=== PATIENT | male | born 1955 | race Caucasian/White ===

== ENCOUNTER 2020-12-13 23:03 | Emergency (ER) | payer OTHER, SELFPAY ==
[2020-12-13 23:10] VITALS: BP 141/79; PULSE 65; RESP 20; TEMP 36.6; O2SAT 100
[2020-12-13 23:45] VITALS: RESP 20; O2SAT 100
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
[2020-12-14] MEDS: TETANUS,DIPHTHERIA,AC PERTUSSIS ADULT (0.5 ML) BOOSTRIX IM (00:08)
[2020-12-14] MEDS: AMOXICILLIN/CLAVULANATE K 875-125 MG TAB 1 TABLET PO (00:11)
== END 2020-12-14 00:15 | disposition home or self-care (01) ==
PROVIDERS: Emergency Provider Emergency Medicine; PCP Internal Medicine
DX: S61.252A Open bite of right middle finger without damage to nail, initial encounter (principal); Z23 Encounter for immunization; W50.3XXA Accidental bite by another person, initial encounter; Y93.F9 Activity, other caregiving
CPT/HCPCS: 90471; 90715; 99283; A9270

== ENCOUNTER 2021-05-23 14:30 | Emergency (ER) | payer OTHER, SELFPAY ==
--- NOTE | ~2021-05-23 | CT_ITS ---
EXAMINATION: CT abdomen pelvis wo con DATE: 05/23/2021 17:06 INDICATION: Nephrolithiasis presenting with left flank pain TECHNIQUE: Computed tomography (CT) of the abdomen and pelvis was performed without intravenous contr ast. Automated exposure control and iterative reconstruction technique were employed. The dose-length product was 982.71 mGy-cm. COMPARISON: 12/17/2018 FINDINGS: Minimal discoid atelectasis in the right lower lobe. Heart size is normal. No pericardial or pleural effusion. Mild bilateral gynecomastia. Liver, gallbladder, spleen, pancreas, right kidney and bilater al adrenal glands are normal. 4 mm obstructing stone at the proximal left ureter with mild left hydro nephrosis. 3 additional stones measuring 4 mm, 2 mm and 2 mm at the lower pole calyces of the left ki dney. Bladder is normal. Prostatomegaly measuring 5.3 x 4.1 cm. Minimal diverticulosis without adjace nt from 3 change to suggest diverticulitis. Small bowel and appendix are normal. No free intraperiton eal gas or fluid. No pathologically enlarged abdominal or pelvic lymphadenopathy. Chronic partially c alcified 12 mm subcutaneous mass near the L2 spinous process likely chronic sebaceous cyst. Chronic T 8 compression fracture with mild anterior wedging. Chronic sclerotic bone island at the left posterio r iliac spine. IMPRESSION: 1. Left-sided nephrolithiasis with obstructing 4 mm proximal left ureteral stone resulting in mild le ft hydronephrosis. 2. Prostatomegaly. Reviewed, dictated and finalized at [facility]. CUTTER IMPRESSION: 1. Left-sided nephrolithiasis with obstructing 4 mm proximal left ureteral ston e resulting in mild left hydronephrosis. 2. Prostatomegaly.
[2021-05-23 14:38] VITALS: BP 167/83; PULSE 81; RESP 18; TEMP 36.1; O2SAT 97
[2021-05-23 16:11] VITALS: BP 142/78; PULSE 68; RESP 18; O2SAT 99
--- NOTE | 2021-05-23 16:43 | ED.ABDPAIN ---
HPI - Abdominal Pain General Chief Complaint: Abdominal Pain Stated Complaint: kidney stone Time Seen by Provider: 05/23/21 16:38 Source: patient Mode of arrival: ambulatory Limitations: no limitations History of Present Illness HPI narrative: Patient is a 65-year-old male complaining of left leg pain, 7 out of 10, sharp, nonradiating, I think it is another kidney stone , started today. Patient states that he has history of kidney stones and this is how usually presents. Patient denies any chest pain, shortness of breath, nausea, vomiting, diarrhea, hematuria, fever or chills. Related Data Allergies Allergy/AdvReac Type Severity Reaction Status Date / Time carbamazepine [From Tegretol] Allergy Rash Verified 05/23/21 16:50 Review of Systems Review of Systems: All systems reviewed & are unremarkable except as noted in HPI and below Constitutional: Constitutional: Denies body ache(s), Denies chills, Denies excessive sweating, Denies fatigue, Denies fever(s), Denies headache(s), Denies lethargy, Denies malaise, Denies weakness and Denies weight loss Eyes: Eyes: Denies blurry vision, Denies change in vision and Denies loss of vision ENT: Denies dizziness, Denies ear discharge, Denies headache(s), Denies lip swelling, Denies epistaxis, Denies nasal congestion, Denies neck pain, Denies throat swelling and Denies tongue swelling Cardiovascular: Cardiovascular: Denies chest pain, Denies chest pain at rest, Denies chest pain with activity, Denies diaphoresis, Denies rapid heart rate, Denies edema, Denies irregular heart rhythm, Denies lightheadedness, Denies palpitations, Denies dyspnea and Denies dyspnea on exertion Respiratory: Respiratory: Denies chest congestion, Denies cough, Denies hemoptysis, Denies dyspnea and Denies dyspnea on exertion Gastrointestinal: Gastrointestinal: Denies abdominal pain, Denies melena, Denies hematochezia, Denies diarrhea, Denies nausea, Denies vomiting and Denies hematemesis Musculoskeletal: Musculoskeletal: Denies abnormal gait, Denies deformity, Denies joint swelling, Denies limited range of motion, Denies neck pain and Denies numbness Neurologic: Denies Abnormal speech present, Denies abnormal gait, Denies confusion, Denies dizziness, Denies headache(s), Denies focal weakness, Denies loss of vision, Denies numbness, Denies Other visual disturbances, Denies Sensory deficit (Neuro) and Denies weakness Psychiatric: Psychiatric: Denies confusion, Denies depression, Denies auditory hallucinations, Denies homicidal ideation and Denies suicidal ideation Endocrine: Endocrine: Denies cold intolerance, Denies excessive sweating, Denies fatigue, Denies heat intolerance and Denies palpitations Hematologic/Lymphatic: Hematologic/Lymphatic: Denies easy bleeding and Denies easy bruising Allergic/Immunologic: Allergic/Immunologic: Denies lip swelling, Denies throat swelling and Denies tongue swelling Course Vital Signs Vital signs: Vital Signs Temperature 36.1 C L 05/23/21 14:38 Pulse Rate 81 05/23/21 14:38 Respiratory Rate 18 05/23/21 14:38 Blood Pressure 167/83 H 05/23/21 14:38 Pulse Oximetry 97 05/23/21 14:38 Temperature 36.1 C L 05/23/21 14:38 Pulse Rate 68 05/23/21 16:11 Respiratory Rate 18 05/23/21 16:11 Blood Pressure 142/78 H 05/23/21 16:11 Pulse Oximetry 99 05/23/21 16:11 MDM - Abdominal Pain Differential Diagnosis Differential diagnosis: Likely abdominal pain, calculus of kidney, diverticulitis, pancreatitis and small bowel obstruction Lab Data Attestation: I reviewed the patient's lab results. Result diagrams: 05/23/21 17:01 05/23/21 17:01 Labs: Lab Results 05/23/21 05/23/21 05/23/21 Range/Units 17:01 17:01 18:18 WBC 10.4 H (4.5-10.0) K/mm3 RBC 4.18 L (4.6-6.20) M/mm3 Hgb 13.3 L (14.0-18.0) g/dL Hct 39.2 L (42.0-52.0) % MCV 93.8 (80-100) fl MCH 31.8 (26-34) pg MCHC 33.9 (32-36) g/dl RDW 12.4
[2021-05-23] MEDS: KETOROLAC 30 MG/ML VIAL (*BKC) IV PUSH (16:49)
[2021-05-23] MEDS: SODIUM CHLORIDE 0.9% IV 1,000 ML 999 ML IV CONT (16:49)
[2021-05-23 17:09] LABS: Basophils Absolute Auto 0.1 K/mm3 (0.0-0.1); Basophils Percent Auto 0.7 % (0.2-1.2); Eosinophils Absolute Auto 0.1 K/mm3 (0-0.3); Eosinophils Percent Auto 0.8 % (0-4.4); Hematocrit 39.2 % (42.0-52.0); Hemoglobin 13.3 g/dL (14.0-18.0); Immature Granulocyte Absolute 0.03 K/mm3 (0.00-0.031); Immature Granulocyte Percent A 0.3 % (0-0.5); Lymphocytes Absolute Auto 1.75 K/mm3 (0.9-3.2); Lymphocytes Percent Auto 16.9 % (18.3-44.2); Mean Corpuscular HGB Conc 33.9 g/dl (32-36); Mean Corpuscular Hemoglobin 31.8 pg (26-34); Mean Corpuscular Volume 93.8 fl (80-100); Mean Platelet Volume 10.1 fl (7.4-10.4); Monocytes Absolute Auto 0.9 K/mm3 (0.1-0.6); Neutrophils Absolute Auto 7.5 K/mm3 (1.3-6.7); Neutrophils Percent Auto 72.3 % (45.5-73.1); Platelet Count Result 226 k/mm3 (150-375); Red Blood Count 4.18 M/mm3 (4.6-6.20); Red Cell Distribution Width 12.4 % (11.5-14.5); White Blood Count 10.4 K/mm3 (4.5-10.0)
[2021-05-23 17:19] LABS: Alanine Aminotransferase 20 U/L (4-50); Albumin Level 4.2 g/dL (3.5-5.1); Alkaline Phosphatase 89 U/L (38-126); Anion Gap 6 mmol/L (8-16); Aspartate Amino Transferase 24 U/L (17-59); Bilirubin,Total 0.3 mg/dL (0.2-1.3); Blood Urea Nitrogen 19 mg/dL (9-20); Calcium 9.2 mg/dL (8.4-10.2); Carbon Dioxide 23 mmol/L (22-30); Chloride 108 mmol/L (98-107); Estimated CRCL calculation 77 ml/min; Estimated Glomerular Filt Rate > 60; Glucose 99 mg/dL (65-110); Sodium 137 mmol/L (137-145)
[2021-05-23 18:28] LABS: Add Urine Microscopic? YES; Appearance Urine Clear (Clear); Bacteria Urine Trace /hpf; Bilirubin Urine Negative (Negative); Blood Urine 3+ (Negative); Color Urine Yellow (Yellow); Glucose Urine UA Negative (Negative); Ketones Urine Negative (Negative); Leukocyte Esterase Ur Negative LEU/UL (Negative); Mucus Urine Rare /lpf; Nitrate Urine Negative (Negative); Protein Urine 1+ mg/dL (Negative); RBC Urine >75 /hpf (0-2); Urobilinogen Urine Negative mg/dL (<2.0); WBC Urine 0-3 /hpf
[2021-05-23] MEDS: TAMSULOSIN HCL 0.4 MG CAPSULE PO (19:12)
[2021-05-23 19:22] VITALS: BP 138/65; PULSE 80; RESP 18; O2SAT 99
== END 2021-05-23 19:23 | disposition home or self-care (01) ==
PROVIDERS: Emergency Provider Emergency Medicine; PCP Internal Medicine
DX: N13.2 Hydronephrosis with renal and ureteral calculous obstruction (principal); Z87.442 Personal history of urinary calculi
CPT/HCPCS: 36415; 74176; 80053; 81001; 85025; 96361; 96374; 99284; A9270; J1885; J7030

== ENCOUNTER 2021-05-26 10:07 | Outpatient (CLI) | payer OTHER, SELFPAY ==
--- NOTE | ~2021-05-26 | XR_ITS ---
EXAMINATION: XR abdomen/kub 1V DATE: 05/26/2021 10:34 INDICATION: Left ureteral stone. TECHNIQUE: A supine view of the abdomen on 2 radiographs was obtained. COMPARISON: Abdomen radiographs 01/16/2019, CT abdomen and pelvis 05/23/2021 FINDINGS: There are 5 mm and 2 mm stones in left kidney. There is a 4 mm stone in proximal left urete r at L4. There are no dilated loops of bowel. IMPRESSION: 1. 4 mm stone in proximal left ureter at L4. 2. Left kidney stones. Reviewed, dictated and finalized at location B. NTURE THERAPIST
== END 2021-05-26 10:08 | disposition home or self-care (01) ==
PROVIDERS: PCP Internal Medicine
DX: N20.2 Calculus of kidney with calculus of ureter (principal)
CPT/HCPCS: 74018

== ENCOUNTER 2021-05-27 01:09 | Day surgery (SDC) | payer OTHER, SELFPAY ==
[2021-05-26 13:50] VITALS: BMI 31.4
[2021-05-27] VITALS (10 sets, daily range): BP systolic 108–166; BP diastolic 51–74; PULSE 50–68; RESP 14–16; TEMP 36.3–36.6; O2SAT 98–100
--- NOTE | ~2021-05-27 | XR_ITS ---
EXAMINATION: XR abdomen/kub 1V DATE: 05/27/2021 09:08 INDICATION: Kidney stone. TECHNIQUE: A supine view of the abdomen on 2 radiographs was obtained. COMPARISON: CT abdomen and pelvis 05/23/2021 FINDINGS: There are 3 stones in left kidney lower pole measuring up to 5 mm. There is a 4 mm stone in proximal left ureter at L4. IMPRESSION: 1. Stones in left kidney and proximal left ureter. Reviewed, dictated and finalized at location B. ER ANALYST
--- NOTE | 2021-05-27 06:47 | WPDHPUPDATE1 ---
History and Physical Update Update Date/Time: 05/27/21 06:47 History and Physical has been reviewed, including an updated exam of the patient. There are NO changes in the patient's condition. Risks, benefits, and alternatives have been discussed and questions answered. Patient agrees to proceed with procedure.
--- NOTE | 2021-05-27 09:42 | P.PNAN_ITS ---
Anes - Initial Pre Proc Eval Procedure: Operation Date: 05/27/21 10:30 Proposed Procedures p Left Extracorporeal Shock Wave Lithotripsy - Isaías Mak MD Date/Time: 05/27/21 09:42 Surgeon: Isaías Mak MD Pre Op Diagnosis: Left Ureteral Stone Patient Data Age: 65 Gender: M Height: 1.8 m Weight: 100.2 kg Last Vital Signs Temp 36.3 C L 05/27/21 09:22 Pulse 65 05/27/21 09:22 Resp 16 05/27/21 09:22 BP 139/60 05/27/21 09:22 Pulse Ox 100 05/27/21 09:22 Allergies Allergy/AdvReac Type Severity Reaction Status Date / Time carbamazepine [From Tegretol] Allergy Mild Rash Verified 05/27/21 09:15 tamsulosin AdvReac Mild Dizziness Verified 05/27/21 09:15 Home Medications Medication Instructions Recorded Confirmed Type hydrocodone-acetaminophen 1 tablet PO Q6H PRN #12 tablet 05/23/21 05/27/21 Rx amitriptyline-chlordiazepoxide 1 tablet PO HS 05/26/21 05/27/21 History losartan 50 mg PO DAILY 05/26/21 05/27/21 History Patient hx anesthesia problems: none Family hx anesthesia problems: none Results Review: All pre-operative results and documents have been reviewed as part of the pre-operative evaluation. [facility] Past Medical History Medical History (Updated 05/27/21 @ 09:42 by Diego Travis MD) Depression HTN (hypertension) Obesity Surgical History Surgical History (Updated 05/27/21 @ 09:44 by Diego Travis MD) H/O lithotripsy Hx of cystoscopy Social History Social History Smoking packs per day: 0.5 Smoking cigarettes per day: 10.0 Years smoked: 17 Smoking pack-years: 8.50 Smoking status: Former smoker Tobacco type: cigarettes Smoking end date: 05/29/78 Living arrangements: with family Gender identity (if verbalized by the patient): Male Spiritual care concerns: No Anes - Eval Final PreProcedure Day of Procedure 05/27/21 09:42 Patient weight: obese Heart: regular rate and rhythm Lungs: clear to auscultation Airway: Mallampati scale class II Neurological: alert and oriented Last oral intake: >/= 8 hours ASA classification: III Emergent: no Anesthetic plan: proceed Anesthesia type and monitoring: general LMA and standard monitoring Results Review: All pre-operative results and documents have been reviewed as part of the pre-operative evaluation. Informed Consent: The patient's anesthetic plan and its attendant risks and benefits were discussed with the patient/family/POA. Questions were solicited and answers provided to the satisfaction of the patient/family/POA.
[2021-05-27] MEDS: fentaNYL CITRATE INJ (*CRX) 100 MCG/2 ML VIAL 50 MCG IV PUSH ×2 (09:56→10:13)
[2021-05-27] MEDS: LACTATED RINGERS 1,000 ML 30 ML IV CONT ×2 (10:04→13:00)
[2021-05-27] MEDS: ceFAZolin 2 GM/D5W 50 ML 2 GM/50 ML BAG IVPB (10:38)
--- NOTE | 2021-05-27 10:53 | W.PM.PROC2 ---
Procedure Note - Detailed Date of Procedure 05/27/21 Pre-op Diagnosis Left Ureteral Stone Post-op Diagnosis same Procedure Performed Left ESWL Surgeon Isaías Mak MD Anesthesia general Description of Procedure The patient was brought to the operative suite where he was placed in the supine position on the Dornier lithotripsy table. The focal point of the lithotripter was placed at a 4mm left mid-ureteral calculus. A total of 3000 shocks were delivered at a power setting of 5. There appeared to be good fragmentation of the stone. The patient tolerated the procedure well and was taken to the recovery room in good condition. Drains No Packing No Pathology none sent Complications No immediate complications Condition stable Disposition PACU
[2021-05-27] MEDS: oxyCODONE HCL (*CRX) 5 MG TAB IR PO (13:03)
--- NOTE | 2021-05-27 13:25 | SUR.PHASEII ---
1320- Call to Dr. Travis patient experiencing 10/10 flank pain and radiating into abdomen. Per Dr. Travis can place orders to give patient 0.5MG Dilaudid IVP PRN every 5 minutes up to a max of 3MG. 1325- Notified Dr. Mak patient experiencing 10/10 flank pain and radiating into abdomen. Obtained orders for 30MG IVP Toradol once.
[2021-05-27] MEDS: KETOROLAC 30 MG/ML VIAL (*BKC) IV PUSH (13:30)
[2021-05-27] MEDS: HYDROmorphone HCL INJ (*CRX) 1 MG/ML SYR 0.5 MG IV PUSH (13:44)
--- NOTE | 2021-05-27 14:20 | SUR.PHASEII ---
DR. HANCOCK AWARE PATIENT IS FEELING BETTER.
== END 2021-05-27 14:19 | disposition home or self-care (01) ==
PROVIDERS: PCP Internal Medicine; Visit Provider Urology
PROC: (CPT 50590; principal; 2021-05-27 10:30)
DX: N20.1 Calculus of ureter (principal); I10 Essential (primary) hypertension; F32.9 Major depressive disorder, single episode, unspecified; Z87.891 Personal history of nicotine dependence; E66.9 Obesity, unspecified; Z68.30 Body mass index [BMI] 30.0-30.9, adult
CPT/HCPCS: 50590; 74018; A9270; J0690; J1100; J1170; J1885; J2250; J2405; J2704; J3010; J7120

== ENCOUNTER 2021-06-11 11:54 | Outpatient (CLI) | payer OTHER, SELFPAY ==
--- NOTE | ~2021-06-11 | XR_ITS ---
EXAMINATION: XR abdomen/kub 1V EXAM DATE: 06/11/2021 12:24 INDICATION: Left ureteral stone. TECHNIQUE: Frontal projection of the upper abdomen, frontal projection lower abdomen/pelvis for inter pretation. Comparison is made to prior examination from 05/27/2021. FINDINGS: On prior study there was a 4 mm calcification projecting between the left 4th and 5th christopher sverse processes, which is not identified on these images. Approximately 4 mm left inferior calyceal stone again noted. There is mild symmetric bilateral hip primary osteoarthritis. Nonobstructive em l gas pattern. IMPRESSION: 1. Left nephrolithiasis. Reviewed, dictated and finalized at location A. ING CARHOP IMPRESSION: 1. Left nephrolithiasis.
== END 2021-06-11 11:55 | disposition home or self-care (01) ==
LOC: ANHIMG 11:58
PROVIDERS: PCP Internal Medicine; Visit Provider Urology
DX: N20.0 Calculus of kidney (principal)
CPT/HCPCS: 74018

== ENCOUNTER 2021-12-23 18:42 | Emergency (ER) | payer OTHER, SELFPAY ==
--- NOTE | ~2021-12-23 | CT_ITS ---
EXAMINATION: CT abdomen pelvis wo con DATE: 12/23/2021 20:36 INDICATION: Left flank pain. Pain and nausea. History of kidney stones. TECHNIQUE: Computed tomography (CT) of the abdomen and pelvis was performed without intravenous contr ast. The dose-length product was 395.37 mGy-cm. Automated exposure control and iterative reconstructi on technique were employed. COMPARISON: CT dated 05/23/2021 FINDINGS: Lung bases are unremarkable. Heart size normal. Mild atherosclerosis without aneurysm. Fatt y infiltration of the liver. The spleen, pancreas, adrenal glands and right kidney are unremarkable. Gallbladder is distended. There is a 5 mm left mid ureteral stone with moderate left hydroureteroneph rosis. There is a nonobstructing left renal stone. No free air or free fluid. Nonobstructive bowel ga s pattern. Normal appendix. No abnormal pelvic masses or fluid collections. There is sclerosis and tr abecular thickening in the left ilium with nearby bone island. The area of sclerosis may represent ea rly Paget's disease. Prostate gland is enlarged. IMPRESSION: 1. Left mid ureteral stone measuring 5 mm with moderate left hydroureteronephrosis. 2: Regional sclerosis intraventricular thickening in the left ilium, suspicious for Paget's disease. Reviewed, dictated and finalized at location A. IMPRESSION: 1. Left mid ureteral stone measuring 5 mm with moderate left hydroureteronephro sis. 2: Regional sclerosis intraventricular thickening in the left ilium, suspicious for Paget's disease.
[2021-12-23 19:18] VITALS: BP 176/81; PULSE 68; RESP 20; TEMP 36.6; O2SAT 99
--- NOTE | 2021-12-23 20:29 | ED.ABDPAIN ---
HPI - Abdominal Pain General Chief Complaint: Abdominal Pain Stated Complaint: left flank pain - history of kidney stones Time Seen by Provider: 12/23/21 19:39 History of Present Illness HPI narrative: 66-year-old male with a history of nephrolithiasis here for evaluation of left flank pain for the past 4 hours. Patient states the pain is intermittent in nature, is severe, and is present in his left flank and left groin. He reports nausea but no vomiting. No fevers or chills, chest pain, shortness of breath, constipation. He tells me that he has an extensive history with nephrolithiasis, he had a lithotripsy in April of last year with Dr. Mak. States today feels very similar. Related Data Home Medications Medication Instructions Recorded Confirmed amitriptyline-chlordiazepoxide 25 1 tablet PO HS 05/26/21 05/27/21 mg-10 mg tablet losartan 50 mg tablet 50 mg PO DAILY 05/26/21 05/27/21 Allergies Allergy/AdvReac Type Severity Reaction Status Date / Time carbamazepine [From Tegretol] Allergy Mild Rash Verified 12/23/21 18:43 tamsulosin AdvReac Mild Dizziness Verified 12/23/21 18:43 Review of Systems Review of Systems: Gen: Denies fevers or chills Eyes: Denies eye pain or visual change ENT: Denies congestion Respiratory: Denies shortness of breath or cough CV: Denies chest pain or palpitations GI: Reports nausea. Denies abdominal pain, emesis or diarrhea : denies burning, urgency, frequency or hematuria Musculoskeletal: Reports left back pain. Denies back pain or muscle pain Neuro: Denies numbness, tingling, weakness or focal weakness Skin: Denies rash Except as documented, all other systems reviewed and negative [facility] Past Medical History Medical History Depression HTN (hypertension) Obesity Surgical History Surgical History H/O lithotripsy Hx of cystoscopy Social History Social History Smoking packs per day: 0.5 Smoking cigarettes per day: 10.0 Years smoked: 17 Smoking pack-years: 8.50 Smoking status: Former smoker Tobacco type: cigarettes Smoking end date: 05/29/78 Gender identity (if verbalized by the patient): Male Spiritual care concerns: No Exam Narrative: APPEARANCE: Well appearing, no pain in distress, well-nourished. Head: Normocephalic and atraumatic. EYES: PERRLA/EOMI, conjunctivae clear NOSE: No nasal drainage EARS: External ear normal in appearance THROAT: Oropharynx is clear. Mucous membranes are moist. NECK: Supple. No adenopathy, no masses. RESPIRATORY: Airway patent, respirations nonlabored. Clear to auscultation bilaterally, no rales, rhonchi, wheezing. CARDIOVASCULAR: Regular rate and rhythm without murmurs, rubs, or gallops. ABDOMINAL: No CVA tenderness. Normoactive bowel sounds. Soft, nontender, nondistended. No rebound tenderness or guarding. MUSCULOSKELETAL: Extremities are warm and well-perfused. Moves all extremities well. No edema. NEURO: Normal speech. No focal neurologic deficits. SKIN: Skin is warm and dry. No rashes. PSYCHIATRIC: Normal affect/mood. Course Consultations Consultation #1: Spoke with Dr. Gannon, urology, agrees with plan for outpatient follow up Date: 12/23/21 Time: 21:50 Vital Signs Vital signs: Vital Signs Temperature 97.8 F 12/23/21 19:18 Pulse Rate 68 12/23/21 19:18 Respiratory Rate 20 12/23/21 19:18 Blood Pressure 176/81 H 12/23/21 19:18 Pulse Oximetry 99 12/23/21 19:18 Oxygen Delivery Room Air 12/23/21 19:18 Temperature 97.8 F 12/23/21 19:18 Pulse Rate 59 L 12/23/21 22:00 Respiratory Rate 18 12/23/21 22:00 Blood Pressure 174/79 H 12/23/21 22:00 Pulse Oximetry 99 12/23/21 22:00 Oxygen Delivery Room Air 12/23/21 19:18 MDM - Abdominal Pain MDM Narrative Medical decision making narrative: 6
[2021-12-23 20:33] LABS: Basophils Absolute Auto 0.1 K/mm3 (0.0-0.1); Basophils Percent Auto 0.6 % (0.2-1.2); Eosinophils Absolute Auto 0.2 K/mm3 (0-0.3); Eosinophils Percent Auto 1.6 % (0-4.4); Hemoglobin 14.3 g/dL (14.0-18.0); Immature Granulocyte Absolute 0.02 K/mm3 (0.00-0.031); Immature Granulocyte Percent A 0.2 % (0-0.5); Lymphocytes Absolute Auto 2.95 K/mm3 (0.9-3.2); Lymphocytes Percent Auto 25.4 % (18.3-44.2); Mean Corpuscular HGB Conc 33.3 g/dl (32-36); Mean Corpuscular Hemoglobin 31.2 pg (26-34); Mean Corpuscular Volume 93.9 fl (80-100); Monocytes Absolute Auto 1.1 K/mm3 (0.1-0.6); Monocytes Percent Auto 9.7 % (2.6-8.5); Neutrophils Absolute Auto 7.2 K/mm3 (1.3-6.7); Neutrophils Percent Auto 62.5 % (45.5-73.1); Platelet Count Result 243 k/mm3 (150-375); Red Blood Count 4.58 M/mm3 (4.6-6.20); Red Cell Distribution Width 12.5 % (11.5-14.5); White Blood Count 11.6 K/mm3 (4.5-10.0)
[2021-12-23 20:47] LABS: Alanine Aminotransferase 27 U/L (6-50); Albumin Level 4.9 g/dL (3.5-5.1); Alkaline Phosphatase 85 U/L (38-126); Anion Gap 9 mmol/L (8-16); Aspartate Amino Transferase 24 U/L (17-59); Bilirubin,Total 0.5 mg/dL (0.2-1.3); Blood Urea Nitrogen 23 mg/dL (9-20); Calcium 9.6 mg/dL (8.4-10.2); Carbon Dioxide 30 mmol/L (22-30); Chloride 101 mmol/L (98-107); Estimated CRCL calculation 68 ml/min; Estimated Glomerular Filt Rate > 60; Glucose 99 mg/dL (65-110); Potassium 4.3 mmol/L (3.4-5.0); Sodium 140 mmol/L (137-145)
[2021-12-23 20:51] LABS: Appearance Urine Clear (Clear); Bilirubin Urine Negative (Negative); Blood Urine 3+ (Negative); Color Urine Yellow (Yellow); Glucose Urine UA Negative (Negative); Ketones Urine Negative (Negative); Leukocyte Esterase Ur Negative LEU/UL (Negative); Nitrate Urine Negative (Negative); Protein Urine 1+ mg/dL (Negative); Specific Grav Ur >= 1.030 (1.001-1.035); Urobilinogen Urine 0.2 mg/dL (<2.0)
[2021-12-23] MEDS: MORPHINE SULFATE (*CRX) 4 MG/ML INJ IV PUSH (20:53)
[2021-12-23] MEDS: ONDANSETRON INJ 4 MG/2 ML VIAL IV PUSH (20:54)
[2021-12-23 21:00] LABS: Mucus Urine Few /lpf; RBC Urine >75 /hpf (0-2); Squamous Epithelial Cell Urine Rare /hpf (Few); WBC Urine 0-3 /hpf
[2021-12-23 21:02] LABS: Add Urine Microscopic? YES
[2021-12-23 22:00] VITALS: BP 174/79; PULSE 59; RESP 18; O2SAT 99
== END 2021-12-23 22:06 | disposition home or self-care (01) ==
PROVIDERS: Emergency Provider Emergency Medicine; PCP Internal Medicine
DX: N13.2 Hydronephrosis with renal and ureteral calculous obstruction (principal); I10 Essential (primary) hypertension; F32.A Depression, unspecified; E66.9 Obesity, unspecified; Z68.32 Body mass index [BMI] 32.0-32.9, adult; Z87.891 Personal history of nicotine dependence; Z87.442 Personal history of urinary calculi
CPT/HCPCS: 36415; 74176; 80053; 81001; 85025; 96374; 96375; 99284; J2270; J2405

== ENCOUNTER 2021-12-29 13:09 | Outpatient (CLI) | payer OTHER, SELFPAY ==
--- NOTE | ~2021-12-29 | XR_ITS ---
EXAM: XR abdomen/kub 1V DATE: 12/29/2021 13:37 HISTORY: LEFT URETERAL STONE . COMPARISON: 06/11/2021, CT abdomen and pelvis 12/23/2021. FINDINGS: Clear lung bases. Normal bowel gas pattern. No organomegaly. 3 x 8 mm calcification projec ts over the left sacrum. Regional bones and soft tissues normal for age. IMPRESSION: Possible 3 x 8 mm left distal ureteral stone indicating interval downstream movement sinc e the prior studies. Reviewed, dictated and finalized at location K. IMPRESSION: Possible 3 x 8 mm left distal ureteral stone indicating interval do wnstream movement since the prior studies.
== END 2021-12-29 13:10 | disposition home or self-care (01) ==
LOC: ANHIMG 13:15
PROVIDERS: PCP Internal Medicine; Visit Provider Urology
DX: N20.1 Calculus of ureter (principal)
CPT/HCPCS: 74018

== ENCOUNTER 2022-01-04 12:59 | Outpatient (CLI) | payer OTHER, SELFPAY ==
--- NOTE | 2022-01-04 13:33 | ECG_ITS ---
Measurements Intervals [place] Rate: 63 P: 56 SD: 148 QRS: -26 QRSD: 112 T: 12 QT: 421 QTc: 432 Interpretive Statements SINUS RHYTHM BORDERLINE LEFT AXIS DEVIATION MINIMAL VOLTAGE CRITERIA FOR LVH, CONSIDER NORMAL VARIANT [MEETS CRITERIA IN ONE OF: R(aVL), S(V1), R(V5), R(V5/V6)+S(V1)] NO PREVIOUS ECG AVAILABLE FOR COMPARISON Electronically Signed On 01-04-2022 16:42:16 CDT by Lisset Naranjo M.D.
== END 2022-01-04 13:00 | disposition home or self-care (01) ==
LOC: ANHLAB 13:04
PROVIDERS: PCP Internal Medicine; Visit Provider Urology
DX: Z01.818 Encounter for other preprocedural examination (principal); N20.1 Calculus of ureter; I10 Essential (primary) hypertension
CPT/HCPCS: 87086; 93005

== ENCOUNTER 2022-01-07 00:48 | Day surgery (SDC) | payer OTHER, SELFPAY ==
--- NOTE | 2022-01-04 12:11 | PC.NURSE ---
Report to the Outpatient Waiting Room, entrance under the green pavilion located off [facility], at time ___1130___ on date _01/07/22_. OR Time: ____0____. - You and your visitor will be asked a series of questions to screen for COVID 19 for your protection. - Only one visitor is allowed at this time. - The patient visitor is requested to leave or wait in car when not with patient. - A mask is required within the hospital. Patients may have clear liquids (water, carbonated beverages, clear teas, apple juice) until 3 hours prior to surgery with a maximum of 20 ounces. - No food from midnight until time of surgery - Infants may have breast milk until 4 hours before surgery, infant formula 6 hours prior to surgery. - Children will be allowed to drink immediately following surgery. If applicable, please bring a bottle or sippy cup to assist with drinking. Juice, water, soda, and popsicles are readily available. For infants on formula, please bring formula the day of surgery. Pacifiers are allowed. Take the following medications with a SIP of water the morning of surgery: NONE Medications to discontinue per physician IBUPROFEN Date to take last dose___01/05/22 Please no make-up, nail indian, hairspray, perfume, deodorant, or body powder the day of surgery. No jewelry (including any body piercings) or valuables the day of surgery, leave them at home. Please take a shower or bath the night before, or the morning of, surgery with an antibacterial soap. Wear comfortable, loose fitting clothing. Children are encouraged to wear pajamas. - Jewelry must be removed prior to entering the operating room. Rings and piercings that are not removed may be cut off. - The hospital will not accept responsibility for valuables. - Please leave all valuables, including medications, at home the day of surgery. If you are going home after surgery, a licensed long haul truck driver must drive you home. - NO public transportation without another adult. - We recommend that an adult stay with you for 24 hours following discharge. - We also recommend that you do not drive, make important decision, drink alcoholic beverages, or take any drugs that were not prescribed by your health care provider for at least 24 hours after your discharge time. For Pediatric surgeries, we recommend two adults accompany the child home (only one inside the building at this time). Follow any additional instructions given to you from your surgeon. If you or anyone in your household have experienced Covid symptoms in the past week, please notify your surgeon or the nurse liaison at the phone number below for possible testing. Telephone instructions given to PATIENT___and asked if any additional questions and then verbalized understanding. Patient advised to call surgeon office or pre surgery nurse liaison [phone] if any additional questions.
--- NOTE | ~2022-01-07 | XR_ITS ---
EXAMINATION: XR abdomen/kub 1V DATE: 01/07/2022 12:03 INDICATION: Kidney stone. TECHNIQUE: A supine view of the abdomen on 2 radiographs was obtained. COMPARISON: CT abdomen and pelvis 12/23/2021 FINDINGS: There are no dilated loops of bowel. There is a 3 mm stone in left kidney. There is a 5 mm stone in distal left ureter. IMPRESSION: 1. Stones in left kidney and distal left ureter. Reviewed, dictated and finalized at location A.
--- NOTE | 2022-01-07 07:00 | WPDHPUPDATE1 ---
History and Physical Update Update Date/Time: 01/07/22 07:00 History and Physical has been reviewed, including an updated exam of the patient. There are NO changes in the patient's condition. Risks, benefits, and alternatives have been discussed and questions answered. Patient agrees to proceed with procedure.
--- NOTE | 2022-01-07 12:29 | P.HP_ITS ---
History of Present Illness History of Present Illness Consent: Risks, benefits, and alternatives have been discussed and questions answered. Patient agrees to proceed with procedure. Chief complaint: Lt Ureteral Stone Narrative: Vladimir Richter is a 66 year old male, known to have recurrent urolithiasis in the past, recently presented with left flank pain. Imaging demonstrated a 6-7 mm left mid ureteral calculus punctate left renal calculi. He has been given time to pass the stone without success. After discussion of options he has elected for left ESWL. He is aware of the risk including, but not limited to, adverse cardiopulmonary events, residual fragments that may require additional intervention and retroperitoneal hematoma. Review of Systems Cardiovascular: Cardiovascular: Denies chest pain, Denies lightheadedness, Denies palpitations and Denies dyspnea Respiratory: Respiratory: Denies dyspnea Gastrointestinal: Gastrointestinal: Denies diarrhea, Denies nausea and Denies vomiting Genitourinary: Genitourinary: Denies hematuria and Denies dysuria Endocrine: Endocrine: Denies palpitations PMFSH Past Medical History Medical History Depression HTN (hypertension) Obesity Surgical History Surgical History H/O lithotripsy Hx of cystoscopy Social History Social History Smoking packs per day: 0.25 Smoking cigarettes per day: 5.0 Years smoked: 12 Smoking pack-years: 3.00 Smoking status: Former smoker Tobacco type: cigarettes Smoking end date: 05/29/78 Additional smoking assessment comments: 1980 QUIT SMOKING Substance use: never Living arrangements: with family Gender identity (if verbalized by the patient): Male Spiritual care concerns: No Meds Home Medications and Allergies Home Medications Medication Instructions Recorded Confirmed Type amitriptyline-chlordiazepoxide 25 1 tablet PO HS 05/26/21 01/04/22 History mg-10 mg tablet losartan 50 mg tablet 50 mg PO DAILY 05/26/21 01/04/22 History hydrocodone 5 mg-acetaminophen 325 1 - 2 tablet PO Q6H PRN pain #20 05/27/21 01/04/22 Rx mg tablet tabs ibuprofen 200 mg capsule 200 mg PO Q6H PRN Pain 01/04/22 01/04/22 History Allergies Allergy/AdvReac Type Severity Reaction Status Date / Time carbamazepine [From Tegretol] Allergy Mild Rash Verified 01/04/22 12:01 tamsulosin AdvReac Mild Dizziness Verified 01/04/22 12:01 Exam Const: General: no acute distress Resp: Effort & Inspection: normal respiratory effort GI: Inspection: non-distended GI Palp: No abdominal tenderness and No Guarding due to palpation present (GI) Auscultation: normal bowel sounds Assessment and Plan Assessment and plan (1) Left ureteral stone: Code(s): N20.1 - Calculus of ureter Status: Acute Assessment and Plan: * Left ESWL
[2022-01-07 12:30] VITALS: BP 157/74; PULSE 63; RESP 18; TEMP 36.1; O2SAT 100
[2022-01-07] MEDS: LACTATED RINGERS 1,000 ML 30 ML IV CONT (12:30)
[2022-01-07 13:29] LABS: INR 1.1; Prothrombin Time 13.7 Seconds (11.1-14.7)
[2022-01-07 13:30] LABS: Partial Thromboplastin Time 29.8 SECONDS (22.3-36.8)
--- NOTE | 2022-01-07 13:33 | WPDANESEPPF ---
Anes - Initial Pre Proc Eval Procedure: Operation Date: 01/07/22 14:00 Proposed Procedures p Left Extracorporeal Shock Wave Lithotripsy, Possible Stent - Isaías Mak MD Date/Time: 01/07/22 13:33 Surgeon: Isaías Mak MD Pre Op Diagnosis: Lt Ureteral Stone Patient Data Age: 66 Gender: M Height: Weight: 104.8 kg Last Vital Signs Temp 36.1 C L 01/07/22 12:30 Pulse 63 01/07/22 12:30 Resp 18 01/07/22 12:30 BP 157/74 H 01/07/22 12:30 Pulse Ox 100 01/07/22 12:30 O2 Del Method Room Air 01/07/22 12:30 Allergies Allergy/AdvReac Type Severity Reaction Status Date / Time carbamazepine [From Tegretol] Allergy Mild Rash Verified 01/07/22 13:19 tamsulosin AdvReac Mild Dizziness Verified 01/07/22 13:19 Home Medications Medication Instructions Recorded Confirmed Type amitriptyline-chlordiazepoxide 25 1 tablet PO HS 05/26/21 01/07/22 History mg-10 mg tablet losartan 50 mg tablet 50 mg PO DAILY 05/26/21 01/07/22 History hydrocodone 5 mg-acetaminophen 325 1 - 2 tablet PO Q6H PRN pain #20 05/27/21 01/04/22 Rx mg tablet tabs ibuprofen 200 mg capsule 200 mg PO Q6H PRN Pain 01/04/22 01/07/22 History Laboratory Tests 01/07/22 13:10 PT 13.7 Seconds Seconds (11.1-14.7) INR 1.1 APTT 29.8 SECONDS SECONDS (22.3-36.8) Patient hx anesthesia problems: none Family hx anesthesia problems: none Results Review: All pre-operative results and documents have been reviewed as part of the pre-operative evaluation. [facility] Past Medical History Medical History Depression HTN (hypertension) Obesity Surgical History Surgical History H/O lithotripsy Hx of cystoscopy Social History Social History Smoking packs per day: 0.25 Smoking cigarettes per day: 5.0 Years smoked: 12 Smoking pack-years: 3.00 Smoking status: Former smoker Tobacco type: cigarettes Smoking end date: 05/29/78 Additional smoking assessment comments: 1980 QUIT SMOKING Substance use: never Living arrangements: with family Gender identity (if verbalized by the patient): Male Spiritual care concerns: No Anes - Eval Final PreProcedure Day of Procedure 01/07/22 13:33 Patient weight: overweight Heart: regular rate and rhythm Lungs: clear to auscultation Airway: Mallampati scale class II and special considerations (upper bridge) Neurological: alert and oriented Last oral intake: >/= 8 hours ASA classification: II Emergent: no Anesthetic plan: proceed Anesthesia type and monitoring: general LMA and standard monitoring Results Review: All pre-operative results and documents have been reviewed as part of the pre-operative evaluation. Informed Consent: The patient's anesthetic plan and its attendant risks and benefits were discussed with the patient/family/POA. Questions were solicited and answers provided to the satisfaction of the patient/family/POA.
[2022-01-07] MEDS: ceFAZolin 2 GM/D5W 50 ML 2 GM/50 ML BAG IVPB (14:20)
--- NOTE | 2022-01-07 14:35 | W.PM.PROC2 ---
Procedure Note - Detailed Date of Procedure 01/07/22 Pre-op Diagnosis Lt Ureteral Stone Post-op Diagnosis Same Procedure Performed Left ureteral ESWL Surgeon Isaías Mak MD Description of Procedure The patient was brought to the operative suite where he was placed in the supine position on the Dornier lithotripsy table. The focal point of the lithotripter was placed at a 4-5mm left distal ureteral calculus. A total of 3000 shocks were delivered at a power setting of 6. There appeared to be good fragmentation of the stone. The patient tolerated the procedure well and was taken to the recovery room in good condition. Drains No Pathology None sent Complications No immediate complications Condition Stable Disposition PACU
[2022-01-07 15:09] VITALS: BP 118/66; PULSE 75; RESP 19; TEMP 37.2; O2SAT 100
[2022-01-07 15:21] VITALS: BP 136/84; PULSE 71; RESP 15; O2SAT 100
[2022-01-07 15:34] VITALS: BP 144/76; PULSE 61; RESP 14; O2SAT 99
[2022-01-07 15:47] VITALS: BP 158/64; PULSE 58; RESP 16
[2022-01-07] MEDS: oxyCODONE HCL (*CRX) 5 MG TAB IR PO (15:59)
[2022-01-07 16:17] VITALS: BP 143/66; PULSE 55; RESP 16
== END 2022-01-07 16:35 | disposition home or self-care (01) ==
PROVIDERS: PCP Internal Medicine; Visit Provider Urology
PROC: (CPT 50590; principal; 2022-01-07 14:00)
DX: N20.1 Calculus of ureter (principal); F32.A Depression, unspecified; I10 Essential (primary) hypertension; Z87.891 Personal history of nicotine dependence
CPT/HCPCS: 50590; 36415; 74018; 85610; 85730; A9270; J0690; J1100; J2405; J2704; J7120

== ENCOUNTER 2022-01-21 10:02 | Outpatient (CLI) | payer OTHER, SELFPAY ==
--- NOTE | ~2022-01-21 | XR_ITS ---
EXAMINATION: XR abdomen/kub 1V INDICATION: Left-sided stone one week post lithotripsy TECHNIQUE: Supine view of the abdomen is obtained. COMPARISON: 01/07/2022 FINDINGS: There appears to be a stable 5 mm stone in the distal left ureter. There is a 3 mm stone in the left kidney. No additional urolithiasis is identified. The bowel gas pattern is normal. There is moderate osteoarthritis of the hips. IMPRESSION: 1. Unchanged stones of the left kidney and distal left ureter. Reviewed, dictated and finalized at location B.
== END 2022-01-21 10:03 | disposition home or self-care (01) ==
PROVIDERS: PCP Internal Medicine; Visit Provider Urology
DX: N20.1 Calculus of ureter (principal); N20.0 Calculus of kidney
CPT/HCPCS: 74018

== ENCOUNTER 2022-01-27 00:28 | Day surgery (SDC) | payer OTHER, SELFPAY ==
[2022-01-25 09:40] VITALS: BMI 32.5
--- NOTE | 2022-01-25 09:45 | PC.NURSE ---
Report to the Outpatient Waiting Room, entrance under the green pavilion located off [facility], at time ___714____ on date __01/27/22 . OR Time: __914 . - You and your visitor will be asked to self-screen and do not enter if you have any COVID symptoms. - Only one visitor and NO children visitors are allowed at this time. - The patient visitor is requested to leave or wait in car when not with patient due to restrictions. - A mask is required within the hospital. Patients may have clear liquids (water, carbonated beverages, clear teas, apple juice) until 3 hours prior to surgery (0615 AM) with a maximum of 20 ounces. - No food from midnight until time of surgery - Infants may have breast milk until 4 hours before surgery, infant formula 6 hours prior to surgery. - Children will be allowed to drink immediately following surgery. If applicable, please bring a bottle or sippy cup to assist with drinking. Juice, water, soda, and popsicles are readily available. For infants on formula, please bring formula the day of surgery. Pacifiers are allowed. Take the following medications with a SIP of water the morning of surgery: ___NONE Medications to discontinue per physician IBUPROFEN PER DR HANCOCK'S INSTRUCTIONS Date to take last dose Please no make-up, nail telugu, hairspray, perfume, deodorant, or body powder the day of surgery. No jewelry (including any body piercings) or valuables the day of surgery, leave them at home. Please take a shower or bath the night before, or the morning of, surgery with an antibacterial soap. Wear comfortable, loose fitting clothing. Children are encouraged to wear pajamas. - Jewelry must be removed prior to entering the operating room. Rings and piercings that are not removed may be cut off. - The hospital will not accept responsibility for valuables. - Please leave all valuables, including medications, at home the day of surgery. If you are going home after surgery, a licensed bottom hoop driver must drive you home. - NO public transportation without another adult. - We recommend that an adult stay with you for 24 hours following discharge. - We also recommend that you do not drive, make important decision, drink alcoholic beverages, or take any drugs that were not prescribed by your health care provider for at least 24 hours after your discharge time. For Pediatric surgeries, we recommend two adults accompany the child home (only one inside the building at this time). Follow any additional instructions given to you from your surgeon. If you or anyone in your household have experienced Covid symptoms in the past week, please notify your surgeon or the nurse liaison at the phone number below for possible testing. Telephone instructions given to __PT and asked if any additional questions and then verbalized understanding. Patient advised to call surgeon office or pre surgery nurse liaison [phone] if any additional questions.
--- NOTE | 2022-01-26 13:29 | P.PNAN_ITS ---
Anes - Initial Pre Proc Eval Procedure: Operation Date: 01/27/22 09:15 Proposed Procedures p Cystoscopy, Left Ureteroscopy, Left Stone Extraction, Left Retrograde Pyelogram, Left Stent Placement, Holmium Laser - Isaías Mak MD Date/Time: 01/26/22 13:29 Surgeon: Isaías Mak MD Pre Op Diagnosis: Lt Ureteral Stone Patient Data Age: 66 Gender: M Height: 1.79 m Weight: 104.5 kg Allergies Allergy/AdvReac Type Severity Reaction Status Date / Time carbamazepine [From Tegretol] Allergy Mild Rash Verified 01/27/22 07:22 tamsulosin AdvReac Mild Dizziness Verified 01/27/22 07:22 Home Medications Medication Instructions Recorded Confirmed Type amitriptyline-chlordiazepoxide 25 1 tablet PO HS 05/26/21 01/27/22 History mg-10 mg tablet losartan 50 mg tablet 50 mg PO DAILY 05/26/21 01/27/22 History ibuprofen 200 mg capsule 200 mg PO Q6H PRN Pain 01/04/22 01/27/22 History hydrocodone 5 mg-acetaminophen 325 1 - 2 tablet PO Q6H PRN pain #20 01/07/22 01/27/22 Rx mg tablet tabs Patient hx anesthesia problems: none Family hx anesthesia problems: none Results Review: All pre-operative results and documents have been reviewed as part of the pre-operative evaluation. [facility] Past Medical History Medical History Depression HTN (hypertension) Obesity Surgical History Surgical History H/O lithotripsy Hx of cystoscopy Social History Social History Smoking packs per day: 0.25 Smoking cigarettes per day: 5.0 Years smoked: 12 Smoking pack-years: 3.00 Smoking status: Former smoker Tobacco type: cigarettes Second hand tobacco smoke exposure: No Smoking end date: 05/29/78 Additional smoking assessment comments: [place] 1979 Alcohol intake: never Substance use: never Substance use type: does not use Living arrangements: with family Gender identity (if verbalized by the patient): Male Spiritual care concerns: No Anes - Eval Final PreProcedure Day of Procedure 01/26/22 13:29 Patient weight: obese Heart: regular rate and rhythm Lungs: clear to auscultation Airway: Mallampati scale class II and special considerations (upper bridge) Neurological: alert and oriented Last oral intake: >/= 8 hours ASA classification: III Emergent: no Anesthetic plan: proceed Anesthesia type and monitoring: general LMA and standard monitoring Results Review: All pre-operative results and documents have been reviewed as part of the pre- operative evaluation. Informed Consent: The patient's anesthetic plan and its attendant risks and benefits were discussed with the patient/family/POA. Questions were solicited and answers provided to the satisfaction of the patient/family/POA.
[2022-01-27] VITALS (7 sets, daily range): BP systolic 119–143; BP diastolic 53–77; PULSE 50–80; RESP 15–18; TEMP 36.1–36.5; O2SAT 98–100
--- NOTE | ~2022-01-27 | XR_ITS ---
EXAMINATION: XR stent kub - surgery DATE: 01/27/2022 09:19 INDICATION: Left ureteral stone. TECHNIQUE: 2 intraoperative fluoroscopic views of the abdomen and pelvis were obtained. I was not pre sent. Fluoroscopy exposure time was 36 seconds. COMPARISON: CT abdomen and pelvis 12/23/2021 FINDINGS: There is a left internal ureteral stent in expected position. IMPRESSION: 1. Left internal ureteral stent in expected position. Reviewed, dictated and finalized at location A.
--- NOTE | 2022-01-27 06:45 | WPDHPUPDATE1 ---
History and Physical Update Update Date/Time: 01/27/22 06:45 History and Physical has been reviewed, including an updated exam of the patient. There are NO changes in the patient's condition. Risks, benefits, and alternatives have been discussed and questions answered. Patient agrees to proceed with procedure.
[2022-01-27] MEDS: LACTATED RINGERS 1,000 ML 30 ML IV CONT (07:39)
[2022-01-27] MEDS: fentaNYL CITRATE INJ (*CRX) 100 MCG/2 ML VIAL 50 MCG IV PUSH (08:05)
[2022-01-27] MEDS: ceFAZolin 2 GM/D5W 50 ML 2 GM/50 ML BAG IVPB (08:49)
[2022-01-27] MEDS: KETOROLAC 30 MG/ML VIAL (*BKC) IV PUSH (08:52)
--- NOTE | 2022-01-27 09:21 | W.PM.PROC2 ---
Procedure Note - Detailed Date of Procedure 01/27/22 Pre-op Diagnosis Lt Ureteral Stone Post-op Diagnosis Same Procedure Performed Cystoscopy, left ureteroscopy with stone extraction, left ureteral stent placement Surgeon Isaías Mak MD Description of Procedure The patient was brought to the operative suite where he is prepped and draped in a routine sterile fashion while in the dorsal lithotomy position after the uneventful induction of a general LMA anesthetic. A 19F rigid cystoscope was placed in the bladder. There are no urethral strictures. His prostatic urethra measures, approximately, 2.5cm with moderate median lobe enlargement. The bladder mucosa was endoscopically normal without hyperemia or neoplasm. There was a single, orthotopic ureteral orifice bilaterally. A 0.035 glidewire was advanced into the left renal pelvis under fluoroscopy. The distal ureter was dilated with an 8F/10F ureteral dilator. Ureteroscopy was undertaken with a short tapered semi-rigid ureteroscope. With repeat ureteroscopy I was able to extract the stone using a 1.9F Escape, disposable stone basket. there was notable left ureteral edema and, due to that and the extent of this manipulation I did place a 4.8F double-J ureteral stent. The proximal coil of the stent was confirmed to be in the renal pelvis and the distal coil in the bladder. The patient's bladder was emptied and he was taken to the recovery room having tolerated this procedure well. Drains No Packing No Pathology Yes Complications No immediate complications
[2022-01-27] MEDS: ONDANSETRON INJ 4 MG/2 ML VIAL IV PUSH (09:44)
--- NOTE | 2022-01-27 09:46 | SUR.PHASEI ---
0946: Simple mask removed.
[2022-01-27] MEDS: oxyCODONE HCL (*CRX) 5 MG TAB IR PO (10:23)
== END 2022-01-27 11:00 | disposition home or self-care (01) ==
PROVIDERS: PCP Internal Medicine; Visit Provider Urology
PROC: (CPT 52352; principal; 2022-01-27 09:15)
DX: N20.1 Calculus of ureter (principal); F32.A Depression, unspecified; I10 Essential (primary) hypertension; Z87.891 Personal history of nicotine dependence; E66.9 Obesity, unspecified; Z68.32 Body mass index [BMI] 32.0-32.9, adult
CPT/HCPCS: 52332; 52320; 82365; 88300; A9270; C1769; C2617; J0131; J0690; J1100; J1885; J2405; J2704; J3010; J7120

== ENCOUNTER 2022-02-03 00:30 | Day surgery (SDC) | payer OTHER, SELFPAY ==
[2022-02-02 15:00] VITALS: BMI 31.6
--- NOTE | 2022-02-02 15:17 | PC.NURSE ---
Report to the Outpatient Waiting Room, entrance under the green pavilion located off [facility], at time __08 on date _02/03/22 . OR Time: _1015 . Time changes happen often and if your time is changed the preop area will call you the afternoon before. - You and your visitor will be asked to self-screen and do not enter if you have any COVID symptoms. - Only one visitor and NO children visitors are allowed at this time. - The patient visitor is requested to leave or wait in car when not with patient due to restrictions. - A mask is required within the hospital. Patients may have clear liquids (water, carbonated beverages, clear teas, apple juice) until 3 hours prior to surgery with a maximum of 20 ounces. - No food from midnight until time of surgery - Infants may have breast milk until 4 hours before surgery, formula 6 hours prior to surgery. - Children will be allowed to drink immediately following surgery. If applicable, please bring a bottle or sippy cup to assist with drinking. Juice, water, soda, and popsicles are readily available. For infants on formula, please bring formula the day of surgery. Pacifiers are allowed. Take the following medications with a SIP of water the morning of surgery: __KELFEX, PAIN PILL Medications to discontinue per physician N/A Date to take last dose N/A Please no make-up, nail amharic, hairspray, perfume, deodorant, or body powder the day of surgery. No jewelry (including any body piercings) or valuables the day of surgery, leave them at home. Please take a shower or bath the night before, or the morning of, surgery with an antibacterial soap. Wear comfortable, loose fitting clothing. Children are encouraged to wear pajamas. - Jewelry must be removed prior to entering the operating room. Rings and piercings that are not removed may be cut off. - The hospital will not accept responsibility for valuables. - Please leave all valuables, including medications, at home the day of surgery. If you are going home after surgery, a licensed electric pile driver operator must drive you home. - NO public transportation without another adult. - We recommend that an adult stay with you for 24 hours following discharge. - We also recommend that you do not drive, make important decision, drink alcoholic beverages, or take any drugs that were not prescribed by your health care provider for at least 24 hours after your discharge time. For Pediatric surgeries, we recommend two adults accompany the child home (only one inside the building at this time). Follow any additional instructions given to you from your surgeon. If you or anyone in your household have experienced Covid symptoms in the past week, please notify your surgeon or the nurse liaison at the phone number below for possible testing. Telephone instructions given to __GARY and asked if any additional questions and then verbalized understanding. Patient advised to call surgeon office or pre surgery nurse liaison [phone] if any additional questions.
[2022-02-03] VITALS (10 sets, daily range): BP systolic 114–147; BP diastolic 57–83; PULSE 51–77; RESP 13–16; TEMP 36.6–36.7; O2SAT 97–100
--- NOTE | ~2022-02-03 | XR_ITS ---
EXAMINATION: XR fluoroscopy no charge DATE: 02/03/2022 10:09 INDICATION: Left ureteral stent removal TECHNIQUE: 2 fluoroscopic images of the abdomen and pelvis were obtained during procedure performed b sera Mak. Radiologist was not present for the imaging or procedure. The amount of fluoroscopy vianca e used during this procedure was 0.1 minutes. COMPARISON: 01/27/2022 FINDINGS: The previously seen left internal ureteral stent is no longer visualized consistent with history of s tent removal. No evident urolithiasis. Visualized bones are unremarkable. IMPRESSION: 1. Removal removal of a prior left intraureteral stent. See procedure note for further detail. Reviewed, dictated and finalized at location A.
--- NOTE | 2022-02-03 06:47 | WPDHPUPDATE1 ---
History and Physical Update Update Date/Time: 02/03/22 06:47 History and Physical has been reviewed, including an updated exam of the patient. There are NO changes in the patient's condition. Risks, benefits, and alternatives have been discussed and questions answered. Patient agrees to proceed with procedure.
[2022-02-03] MEDS: LACTATED RINGERS 1,000 ML 30 ML IV CONT (09:30)
--- NOTE | 2022-02-03 09:37 | WPDANESEPPF ---
Anes - Initial Pre Proc Eval Procedure: Operation Date: 02/03/22 10:15 Proposed Procedures p Cystoscopy, Left Ureteroscopy, Left Stent Removal - Isaías Mak MD Date/Time: 02/03/22 09:37 Surgeon: Isaías Mak MD Pre Op Diagnosis: left ureteral stone Pre Op Diagnosis: left ureteral stone Patient Data Age: 66 Gender: M Height: 1.78 m Weight: 100 kg Allergies Allergy/AdvReac Type Severity Reaction Status Date / Time carbamazepine [From Tegretol] Allergy Mild Rash Verified 02/02/22 14:57 tamsulosin AdvReac Mild Dizziness Verified 02/02/22 14:57 Home Medications Medication Instructions Recorded Confirmed Type amitriptyline-chlordiazepoxide 25 1 tablet PO HS 05/26/21 02/02/22 History mg-10 mg tablet losartan 50 mg tablet 50 mg PO DAILY 05/26/21 02/02/22 History ibuprofen 200 mg capsule 200 mg PO Q6H PRN Pain 01/04/22 02/02/22 History cephalexin 500 mg capsule 500 mg PO Q8H #9 caps 01/27/22 02/02/22 Rx hydrocodone 5 mg-acetaminophen 325 1 - 2 tablet PO Q6H PRN pain #20 01/27/22 02/02/22 Rx mg tablet tabs Patient hx anesthesia problems: none Family hx anesthesia problems: none Results Review: All pre-operative results and documents have been reviewed as part of the pre-operative evaluation. [facility] Past Medical History Medical History Depression HTN (hypertension) Obesity Surgical History Surgical History H/O lithotripsy Hx of cystoscopy Social History Social History Smoking packs per day: 0.25 Smoking cigarettes per day: 5.0 Years smoked: 12 Smoking pack-years: 3.00 Smoking status: Former smoker Tobacco type: cigarettes Second hand tobacco smoke exposure: No Smoking end date: 05/29/78 Additional smoking assessment comments: [place] 1979 Alcohol intake: never Drinks per week: 0 Substance use: never Substance use type: does not use Last use: 05/29/79 Living arrangements: with family Gender identity (if verbalized by the patient): Male Spiritual care concerns: No Anes - Eval Final PreProcedure Day of Procedure 02/03/22 09:37 Heart: regular rate and rhythm ASA classification: II Anesthetic plan: proceed Anesthesia type and monitoring: general LMA and standard monitoring Results Review: All pre-operative results and documents have been reviewed as part of the pre-operative evaluation. Informed Consent: The patient's anesthetic plan and its attendant risks and benefits were discussed with the patient/family/POA. Questions were solicited and answers provided to the satisfaction of the patient/family/POA.
[2022-02-03] MEDS: ceFAZolin 2 GM/D5W 50 ML 2 GM/50 ML BAG IVPB (09:45)
--- NOTE | 2022-02-03 10:07 | W.PM.PROC2 ---
Procedure Note - Detailed Date of Procedure 02/03/22 Pre-op Diagnosis Retained left ureteral stent Post-op Diagnosis Same Procedure Performed Cystoscopy with left ureteral stent removal Surgeon Isaías Mak MD Description of Procedure Patient is brought the op suite where he has prepped draped in routine sterile fashion while in dorsal lithotomy position. 2% lidocaine jelly was introduced intraurethrally and a general LMA was administered per Anesthesia. Cystoscopy is undertaken with a 19 F rigid cystoscope. The very tip of the indwelling stent is at the external urethral meatus and in the somewhat obscured by a moderate size median lobe of the prostate. It is extracted with a grasping forceps without need for ureteroscopy. This was a simple procedure that the patient tolerated well. He was taken to recovery room good condition. Drains No Packing No Pathology None sent Complications No immediate complications
== END 2022-02-03 11:42 | disposition home or self-care (01) ==
PROVIDERS: PCP Internal Medicine; Visit Provider Urology
PROC: (CPT 52352; principal; 2022-02-03 10:15)
DX: Z46.6 Encounter for fitting and adjustment of urinary device (principal); I10 Essential (primary) hypertension; F32.A Depression, unspecified; E66.9 Obesity, unspecified; Z68.32 Body mass index [BMI] 32.0-32.9, adult; Z87.891 Personal history of nicotine dependence
CPT/HCPCS: 52310; 99199; A9270; C1769; J0690; J1100; J2405; J2704; J3010; J7120

== ENCOUNTER 2022-02-26 14:01 | Emergency (ER) | payer OTHER, SELFPAY ==
--- NOTE | ~2022-02-26 | XR_ITS ---
EXAM: XR foot LT min 3V DATE: 02/26/2022 14:59 HISTORY: LAC BY METAL, DORSAL DISTAL FOOT, AREAS OF 3RD-5 METATARSALS . COMPARISON: None available. FINDINGS: Normal mineralization. No fracture or dislocation. No lytic or blastic lesion. Degenerativ e change at the first MTP and first interphalangeal joint. Old fracture fragment adjacent to the medi al aspect of the first distal phalanx. No erosion or periosteal change. Soft tissues within normal li mits. IMPRESSION: No acute osseous finding the left foot. No radiopaque foreign body. Reviewed, dictated and finalized at location K.
[2022-02-26 14:08] VITALS: BP 134/59; PULSE 63; RESP 15; TEMP 36.7; O2SAT 98
--- NOTE | 2022-02-26 16:34 | ED.LOWEXIN ---
HPI - Extremity Injury (Lower) General Chief Complaint: Extremity Injury, Lower Stated Complaint: Torn 2-3 chunks out of left foot/toe Time Seen by Provider: 02/26/22 16:28 History of Present Illness HPI Narrative: 66-year-old male presents to the emergency room for evaluation of lacerations to his left foot. Patient states that he was giving his son the shower using a shower chair, when the chair broke. Wheel from the chair broke off cutting the top of his left foot. States his tetanus is up-to-date. Bleeding was controlled prior to arrival Related Data Home Medications Medication Instructions Recorded Confirmed amitriptyline-chlordiazepoxide 25 1 tablet PO HS 05/26/21 02/02/22 mg-10 mg tablet losartan 50 mg tablet 50 mg PO DAILY 05/26/21 02/02/22 ibuprofen 200 mg capsule 200 mg PO Q6H PRN Pain 01/04/22 02/02/22 Allergies Allergy/AdvReac Type Severity Reaction Status Date / Time carbamazepine [From Tegretol] Allergy Mild Rash Verified 02/26/22 14:57 tamsulosin AdvReac Mild Dizziness Verified 02/26/22 14:57 Review of Systems Review of Systems: CONSTITUTIONAL: Denies fever, chills, or sweats. EYES: Denies visual changes, redness, or discharge. ENT: Denies rhinorrhea, congestion, sore throat, or otalgia. CARDIOVASCULAR: Denies chest pain, palpitations, or edema. RESPIRATORY: Denies cough or dyspnea. GASTROINTESTINAL: Denies abdominal pain, nausea, vomiting, or diarrhea. GENITOURINARY: Denies dysuria or hematuria. SKIN: Reports laceration to top of left foot MUSCULOSKELETAL: Denies back pain, joint pain, or myalgia. NEUROLOGIC: Denies headache, numbness, dizziness, or weakness. PSYCHIATRIC: Denies anxiety or depression. [facility] Past Medical History Medical History Depression HTN (hypertension) Obesity Surgical History Surgical History H/O lithotripsy Hx of cystoscopy Social History Social History Smoking packs per day: 0.25 Smoking cigarettes per day: 5.0 Years smoked: 12 Smoking pack-years: 3.00 Smoking status: Former smoker Tobacco type: cigarettes Second hand tobacco smoke exposure: No Smoking end date: 05/29/78 Additional smoking assessment comments: STATES STOPPED SMOKING 1979 Alcohol intake: never Drinks per week: 0 Substance use: never Substance use type: does not use Last use: 05/29/79 Gender identity (if verbalized by the patient): Male Spiritual care concerns: No Exam Narrative: GENERAL: Well-appearing, well-nourished, no physical limitations, and in no acute distress. HEAD: Normocephalic, atraumatic. EYES: Conjunctivae normal, PERRLA and EOMI. CHEST: Clear to auscultation. No respiratory distress. No wheezes rales or rhonchi. No tenderness. HEART: Regular rate and rhythm. No murmur heard. Normal peripheral pulses. EXTREMITIES: Normal range of motion. No edema. No clubbing or cyanosis SKIN: 2 cm laceration to the dorsal side of his left foot NEURO: No focal deficits. Alert and oriented x3. MAEW. CN's II-XI intact bilaterally, normal gait PSYCH: Cooperative. Normal mood and affect. Course Vital Signs Vital signs: Vital Signs Temperature 36.7 C 02/26/22 14:08 Pulse Rate 63 02/26/22 14:08 Respiratory Rate 15 02/26/22 14:08 Blood Pressure 134/59 L 02/26/22 14:08 Pulse Oximetry 98 02/26/22 14:08 Oxygen Delivery Room Air 02/26/22 14:08 Temperature 36.7 C 02/26/22 14:08 Pulse Rate 63 02/26/22 14:08 Respiratory Rate 15 02/26/22 14:08 Blood Pressure 134/59 L 02/26/22 14:08 Pulse Oximetry 98 02/26/22 14:08 Oxygen Delivery Room Air 02/26/22 14:08 Procedures Laceration Laceration 1: Date: 02/26/22 Time: 17:02 Site: lower extremity Side (If applicable): left Size (cm): 2 Description: linear Depth: simple
[2022-02-26 17:26] VITALS: BP 139/89; PULSE 75; RESP 18; O2SAT 97
== END 2022-02-26 17:27 | disposition home or self-care (01) ==
PROVIDERS: Emergency Provider Nurse Practitioner Family; PCP Internal Medicine
DX: S91.312A Laceration without foreign body, left foot, initial encounter (principal); F32.A Depression, unspecified; I10 Essential (primary) hypertension; E66.9 Obesity, unspecified; Z68.32 Body mass index [BMI] 32.0-32.9, adult; Z87.891 Personal history of nicotine dependence; W20.8XXA Other cause of strike by thrown, projected or falling object, initial encounter
CPT/HCPCS: 12002; 73630; 99283

== ENCOUNTER 2022-09-28 11:27 | Outpatient (CLI) | payer OTHER, SELFPAY ==
--- NOTE | ~2022-09-28 | XR_ITS ---
EXAMINATION: XR abdomen/kub 1V DATE: 09/28/2022 11:52 INDICATION: Kidney stone. TECHNIQUE: A supine view of the abdomen on 2 radiographs was obtained. COMPARISON: CT abdomen and pelvis 12/23/2021 FINDINGS: There are no dilated loops of bowel. There is a 3 mm stone in left kidney. IMPRESSION: 1. 3 mm stone in left kidney. Reviewed, dictated and finalized at location A.
== END 2022-09-28 11:28 | disposition home or self-care (01) ==
PROVIDERS: PCP Internal Medicine; Visit Provider Urology
DX: N20.0 Calculus of kidney (principal)
CPT/HCPCS: 74018

== ENCOUNTER 2023-04-13 10:55 | Outpatient (CLI) | payer OTHER, SELFPAY ==
--- NOTE | ~2023-04-13 | XR_ITS ---
EXAMINATION: XR abdomen/kub 1V DATE: 04/13/2023 11:15 INDICATION: Right-sided kidney stone TECHNIQUE: A supine view of the abdomen on 2 radiographs was obtained. COMPARISON: 09/28/2022 FINDINGS: There are couple 3 to 4 mm densities projecting over the lower pole of the left kidney suspicious for nephrolithiasis. Unremarkable bowel gas pattern with small amount of gas and stool in the proximal c olon. 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 Visualized lower lungs are clear with no pleural effusion. Heart size is normal. IMPRESSION: 1. A couple 304 mm densities project over the lower pole of the left kidney suspicious for nephrolith iasis. Reviewed, dictated and finalized at location A. OF CONSERVATION IMPRESSION: 1. A couple 304 mm densities project over the lower pole of the left kidney andrew picious for nephrolithiasis.
== END 2023-04-13 10:56 | disposition home or self-care (01) ==
PROVIDERS: PCP Internal Medicine; Visit Provider Urology
DX: N43.40 Spermatocele of epididymis, unspecified (principal)
CPT/HCPCS: 74018

== ENCOUNTER 2023-05-26 10:44 | Outpatient (CLI) | payer OTHER, SELFPAY ==
--- NOTE | 2023-05-26 11:14 | ECG_ITS ---
Measurements Intervals [place] Rate: 58 P: 16 KS: 164 QRS: -29 QRSD: 110 T: -4 QT: 416 QTc: 410 Interpretive Statements SINUS BRADYCARDIA BORDERLINE LEFT AXIS DEVIATION [QRS AXIS < -20] MODERATE VOLTAGE CRITERIA FOR LVH, CONSIDER NORMAL VARIANT [MEETS CRITERIA IN ONE OF: R(aVL), S(V1), R(V5), R(V5/V6)+S(V1)] COMPARED TO ECG 01/04/2022 13:39:01 SINUS BRADYCARDIA NOW PRESENT Electronically Signed On 05-26-2023 16:37:55 [employer] by Cesar Velasquez M.D.
== END 2023-05-26 10:45 | disposition home or self-care (01) ==
LOC: ANHSURGERY 10:47
PROVIDERS: PCP Internal Medicine; Visit Provider Urology
DX: Z01.810 Encounter for preprocedural cardiovascular examination (principal); I10 Essential (primary) hypertension; R00.1 Bradycardia, unspecified
CPT/HCPCS: 93005

== ENCOUNTER 2023-06-01 00:44 | Day surgery (SDC) | payer OTHER, SELFPAY ==
--- NOTE | 2023-05-11 07:34 | P.HP_ITS ---
H&P: HPI History of Present Illness Date/Time: 05/11/23 07:34 Chief Complaint: Right scrotal swelling Narrative: This patient is well-known to me with a history recurrent urolithiasis requiring ESWL in the past. He has had progressive swelling in his right hemiscrotum that has now become somewhat uncomfortable. Examiner is consistent with a spermatocele. After discussion of options he has elected for spermatocelectomy. He is aware the risks including, but not limited to, recurrence of scrotal swelling and scrotal hematoma Review of Systems Review of Systems: All systems reviewed & are unremarkable except as noted in HPI and below Cardiovascular: Cardiovascular: Denies chest pain, Denies lightheadedness, Denies palpitations and Denies dyspnea Respiratory: Respiratory: Denies dyspnea Gastrointestinal: Gastrointestinal: Denies diarrhea, Denies nausea and Denies vomiting Genitourinary: Genitourinary: Denies hematuria and Denies dysuria Endocrine: Endocrine: Denies palpitations PMFSH Past Medical History Medical History Depression HTN (hypertension) Obesity Surgical History Surgical History H/O lithotripsy Hx of cystoscopy Social History Social History Smoking packs per day: 0.25 Smoking cigarettes per day: 5.0 Years smoked: 12 Smoking pack-years: 3.00 Smoking status: Former smoker Tobacco type: cigarettes Second hand tobacco smoke exposure: No Smoking end date: 05/29/78 Additional smoking assessment comments: STATES STOPPED SMOKING 1979 Alcohol intake: never Drinks per week: 0 Substance use: never Substance use type: does not use Last use: 05/29/79 Living arrangements: with family Gender identity (if verbalized by the patient): Male Spiritual care concerns: No Meds Home Medications and Allergies Home Medications Medication Instructions Recorded Confirmed Type amitriptyline-chlordiazepoxide 25 1 tablet PO HS 05/26/21 02/02/22 History mg-10 mg tablet losartan 50 mg tablet 50 mg PO DAILY 05/26/21 02/02/22 History ibuprofen 200 mg capsule 200 mg PO Q6H PRN Pain 01/04/22 02/02/22 History cephalexin 500 mg capsule 500 mg PO Q8H #9 caps 01/27/22 02/02/22 Rx hydrocodone 5 mg-acetaminophen 325 1 - 2 tablet PO Q6H PRN pain #20 01/27/22 02/02/22 Rx mg tablet tabs cephalexin 500 mg capsule 500 mg PO Q12H 7 days #14 caps 02/26/22 Rx Allergies Allergy/AdvReac Type Severity Reaction Status Date / Time carbamazepine [From Tegretol] Allergy Mild Rash Verified 02/26/22 14:57 tamsulosin AdvReac Mild Dizziness Verified 02/26/22 14:57 Exam Const: General: no acute distress Resp: Effort & Inspection: normal respiratory effort GI: Inspection: non-distended GI Palp: No abdominal tenderness and No Guarding due to palpation present (GI) Auscultation: normal bowel sounds : Scrotum: Spermatocele present Assessment and Plan Assessment and plan (1) Spermatocele: Code(s): N43.40 - Spermatocele of epididymis, unspecified Status: Acute Assessment and Plan: * Right spermatocele I
--- NOTE | 2023-05-25 08:55 | PC.NURSE ---
Report to the Outpatient Waiting Room, entrance under the green pavilion located off [facility], at time _1000 on date __06/01/23 . Planned Procedure Time: _1200 . Time changes happen often and if your time is changed the preop area will call you the afternoon before. - You and your visitor will be asked to self-screen and do not enter if you have any COVID symptoms. - A mask is optional within the hospital at this time. Patients may have clear liquids (water, carbonated beverages, clear teas, apple juice) until 3 hours prior to surgery( 9:00AM )with a maximum of 20 ounces. - No food from midnight until time of surgery - Infants may have breast milk until 4 hours before surgery, formula 6 hours prior to surgery. - Children will be allowed to drink immediately following surgery. If applicable, please bring a bottle or sippy cup to assist with drinking. Juice, water, soda, and popsicles are readily available. For infants on formula, please bring formula the day of surgery. Pacifiers are allowed. Take the following medications with a SIP of water the morning of surgery: __NONE DO NOT STOP ANY OF YOUR OTHER PRESCRIPTION MEDICATIONS PRIOR TO SURGERY ?EXCEPT THE FOLLOWING Medications to discontinue per physician NONE Please no make-up, nail urdu, hairspray, perfume, deodorant, or body powder the day of surgery. No jewelry (including any body piercings) or valuables the day of surgery, leave them at home. Please take a shower or bath the night before, or the morning of, surgery with an antibacterial soap. Wear comfortable, loose fitting clothing. Children are encouraged to wear pajamas. - Jewelry must be removed prior to entering the operating room. Rings and piercings that are not removed may be cut off. - The hospital will not accept responsibility for valuables. - Please leave all valuables, including medications, at home the day of surgery. If you are going home after surgery, a licensed ready mix truck driver must drive you home. - NO public transportation without another adult if you receive anesthesia. - We recommend that an adult stay with you for 24 hours following discharge. - We also recommend that you do not drive, make important decision, drink alcoholic beverages, or take any drugs that were not prescribed by your health care provider for at least 24 hours after your discharge time. Follow any additional instructions given to you from your surgeon. If you or anyone in your household have experienced Covid symptoms in the past week, please notify your surgeon or the nurse liaison at the phone number below for possible testing. Telephone instructions given to __PATIENT and asked if any additional questions and then verbalized understanding. Patient advised to call surgeon office or pre surgery nurse liaison [phone] if any additional questions.
[2023-05-25 09:04] VITALS: BMI 31.9
--- NOTE | 2023-05-26 10:32 | P.HP_ITS ---
History of Present Illness History of Present Illness Consent: Risks, benefits, and alternatives have been discussed and questions answered. Patient agrees to proceed with procedure. Chief complaint: Spermatocele Narrative: Vladimir Richter is a 67 year old male who is well known to our practice with a history of recurrent urolithiasis. He has also had a small right spermatocele which, until recently, had not been problematic. It continues to increase in size and causes discomfort that is positional in nature. After discussion of options he has elected to proceed with spermatocelectomy. He is aware the risk including, but not limited to, wound infection scrotal hematuria and recurrent spermatoceles. Review of Systems Cardiovascular: Cardiovascular: Denies chest pain, Denies lightheadedness, Denies palpitations and Denies dyspnea Respiratory: Respiratory: Denies dyspnea Gastrointestinal: Gastrointestinal: Denies diarrhea, Denies nausea and Denies vomiting Genitourinary: Genitourinary: Denies hematuria and Denies dysuria Endocrine: Endocrine: Denies palpitations PMFSH Past Medical History Medical History Depression HTN (hypertension) Obesity Surgical History Surgical History H/O lithotripsy Hx of cystoscopy Social History Social History Smoking packs per day: 0.25 Smoking cigarettes per day: 5.0 Years smoked: 12 Smoking pack-years: 3.00 Smoking status: Former smoker Tobacco type: cigarettes Second hand tobacco smoke exposure: No Smoking end date: 05/29/79 Additional smoking assessment comments: STATES STOP[place] SMOKING 1979 Alcohol intake: never Drinks per week: 0 Substance use: never Substance use type: does not use Last use: 05/29/79 Living arrangements: with family Gender identity (if verbalized by the patient): Male Spiritual care concerns: No Meds Home Medications and Allergies Home Medications Medication Instructions Recorded Confirmed Type amitriptyline-chlordiazepoxide 25 1 tablet PO HS 05/26/21 05/25/23 History mg-10 mg tablet losartan 50 mg tablet 50 mg PO DAILY 05/26/21 05/25/23 History ibuprofen 200 mg capsule 200 mg PO Q6H PRN Pain 01/04/22 05/25/23 History Allergies Allergy/AdvReac Type Severity Reaction Status Date / Time carbamazepine [From Tegretol] Allergy Mild Rash Verified 05/25/23 08:46 tamsulosin AdvReac Mild Dizziness Verified 05/25/23 08:46 Exam Const: General: no acute distress Resp: Effort & Inspection: normal respiratory effort GI: Inspection: non-distended GI Palp: No abdominal tenderness and No Guarding due to palpation present (GI) Auscultation: normal bowel sounds : Scrotum: Spermatocele present (moderate, right) on the right Assessment and Plan Assessment and plan (1) Spermatocele: Code(s): N43.40 - Spermatocele of epididymis, unspecified Status: Acute Assessment and Plan: * Right spermatocelectomy
[2023-06-01] VITALS (9 sets, daily range): BP systolic 119–151; BP diastolic 53–77; PULSE 55–70; RESP 12–16; TEMP 36.1; O2SAT 97–100
--- NOTE | 2023-06-01 06:25 | WPDHPUPDATE1 ---
History and Physical Update Update Date/Time: 06/01/23 06:25 History and Physical has been reviewed, including an updated exam of the patient. There are NO changes in the patient's condition. Risks, benefits, and alternatives have been discussed and questions answered. Patient agrees to proceed with procedure.
--- NOTE | 2023-06-01 09:31 | P.PNAN_ITS ---
Anes - Initial Pre Proc Eval Procedure: Operation Date: 06/01/23 11:00 Proposed Procedures p Right Spermatocelectomy - Isaías Mak MD Date/Time: 06/01/23 09:31 Surgeon: Isaías Mak MD Pre Op Diagnosis: Spermatocele Patient Data Age: 67 Gender: M Height: 1.79 m Weight: 103.1 kg Last Vital Signs Temp 96.9 F L 06/01/23 09:26 Pulse 64 06/01/23 09:26 Resp 16 06/01/23 09:26 BP 136/71 06/01/23 09:26 Pulse Ox 98 06/01/23 09:26 O2 Del Method Room Air 06/01/23 09:26 Allergies Allergy/AdvReac Type Severity Reaction Status Date / Time carbamazepine [From Tegretol] Allergy Mild Rash Verified 06/01/23 09:02 tamsulosin AdvReac Mild Dizziness Verified 06/01/23 09:02 Home Medications Medication Instructions Recorded Confirmed Type amitriptyline-chlordiazepoxide 25 1 tablet PO HS 05/26/21 06/01/23 History mg-10 mg tablet losartan 50 mg tablet 50 mg PO DAILY 05/26/21 06/01/23 History ibuprofen 200 mg capsule 200 mg PO Q6H PRN Pain 01/04/22 06/01/23 History Patient hx anesthesia problems: none Family hx anesthesia problems: none Results Review: All pre-operative results and documents have been reviewed as part of the pre- operative evaluation. [facility] Past Medical History Medical History Depression HTN (hypertension) Obesity Surgical History Surgical History H/O lithotripsy Hx of cystoscopy Social History Social History Smoking packs per day: 0.25 Smoking cigarettes per day: 5.0 Years smoked: 12 Smoking pack-years: 3.00 Smoking status: Former smoker Tobacco type: cigarettes Second hand tobacco smoke exposure: No Smoking end date: 05/29/79 Additional smoking assessment comments: STATES STOPPED SMOKING 1979 Alcohol intake: never Drinks per week: 0 Substance use: never Substance use type: does not use Last use: 05/29/79 Living arrangements: with family Gender identity (if verbalized by the patient): Male Spiritual care concerns: No Anes - Eval Final PreProcedure Day of Procedure 06/01/23 09:31 Patient weight: obese Heart: regular rate and rhythm Lungs: clear to auscultation Airway: Mallampati scale class II Neurological: alert and oriented Last oral intake: >/= 8 hours ASA classification: III Emergent: no Anesthetic plan: proceed Anesthesia type and monitoring: general LMA and standard monitoring Results Review: All pre-operative results and documents have been reviewed as part of the pre- operative evaluation. Informed Consent: The patient's anesthetic plan and its attendant risks and benefits were discussed with the patient/family/POA. Questions were solicited and answers provided to the satisfaction of the patient/family/POA.
[2023-06-01] MEDS: LACTATED RINGERS 1,000 ML 30 ML IV CONT (09:44)
[2023-06-01] MEDS: ceFAZolin 2 GM/D5W 50 ML 2 GM/50 ML BAG IVPB (10:55)
[2023-06-01] MEDS: LIDOCAINE HCL 1% LOCAL INJ 20 ML VIAL 10 ML INFILTRATE (11:22)
--- NOTE | 2023-06-01 11:35 | W.PM.PROC2 ---
Procedure Note - Detailed Date of Procedure 06/01/23 Pre-op Diagnosis Right Spermatocele Post-op Diagnosis Same Procedure Performed Right spermatocelectomy Surgeon Isaías Mak MD Anesthesia General Description of Procedure The patient was brought to the operative suite where he was prepped and draped in routine sterile fashion while in a supine position after the uneventful induction of a general LMA anesthetic. An incision was made in the median raphe of the scrotum and dissection was carried into the [right/left] tunica vaginalis. There is no appreciable hydrocele but a moderate-large right spermatocele arising from the epididymis. This spermatocele is dissected from the spermatic cord and testicle to its origin from the epididymis. It is transected at its origin with care taken to avoid any injury to the testicle or epididymis. Care was taken to avoid compromise to vessels in the spermatic cord. The testicle was examined and found to be both visibly and palpably normal. The testicle was returned to an orthotopic positioned. The dartos muscle was closed with a running 4-0 chromic and the skin was likewise closed with a running 4-0 chromic. Estimated blood loss throughout this procedure was 10cc. Patient tolerated the procedure well and was taken to the recovery room in good condition. Drains No Packing No Pathology Yes Condition Stable Disposition PACU
[2023-06-01] MEDS: ONDANSETRON INJ 4 MG/2 ML VIAL IV PUSH (12:04)
[2023-06-01] MEDS: fentaNYL CITRATE INJ (*CRX) 100 MCG/2 ML VIAL 25 MCG IV PUSH ×2 (12:05→12:18)
[2023-06-01] MEDS: oxyCODONE HCL (*CRX) 5 MG TAB IR PO (13:00)
== END 2023-06-01 13:55 | disposition home or self-care (01) ==
PROVIDERS: PCP Internal Medicine; Visit Provider Urology
PROC: (CPT 54840; principal; 2023-06-01 11:00)
DX: N43.40 Spermatocele of epididymis, unspecified (principal); F32.A Depression, unspecified; I10 Essential (primary) hypertension; E66.9 Obesity, unspecified; Z68.32 Body mass index [BMI] 32.0-32.9, adult; Z87.891 Personal history of nicotine dependence
CPT/HCPCS: 54840; 88304; A9270; J0690; J1100; J2250; J2405; J2704; J3010; J7120

== ENCOUNTER 2023-07-19 14:04 | Outpatient (CLI) | payer OTHER, SELFPAY ==
--- NOTE | ~2023-07-19 | XR_ITS ---
EXAMINATION: XR abdomen/kub 1V DATE: 07/19/2023 14:24 INDICATION: Left renal stone. Left abdominal pain. TECHNIQUE: A supine view of the abdomen on 2 radiographs was obtained. COMPARISON: CT abdomen and pelvis 12/23/2021, abdomen radiographs 04/13/2023 FINDINGS: There are no dilated loops of bowel. There is a small volume of stool in the colon. There i s a 3 mm stone in left kidney. There is a 4 mm calcification in left pelvis. IMPRESSION: 1. 4 mm calcification in left pelvis not seen on prior imaging, which may be a stone in the distal le ft ureter. 2. 3 mm stone in left kidney. Reviewed, dictated and finalized at location E. T MANAGER IMPRESSION: 1. 4 mm calcification in left pelvis not seen on prior imaging, which may be a stone in the distal left ureter. 2. 3 mm stone in left kidney.
== END 2023-07-19 14:05 | disposition home or self-care (01) ==
LOC: ANHIMG 14:06
PROVIDERS: PCP Internal Medicine; Visit Provider Urology
DX: N20.0 Calculus of kidney (principal)
CPT/HCPCS: 74018

== ENCOUNTER 2023-08-03 15:50 | Outpatient (CLI) | payer OTHER, SELFPAY ==
--- NOTE | ~2023-08-03 | XR_ITS ---
EXAMINATION: XR abdomen/kub 1V DATE: 08/03/2023 16:14 INDICATION: Left ureteral stone. TECHNIQUE: A supine view of the abdomen on 2 radiographs was obtained. COMPARISON: Abdomen radiographs 07/19/2023 FINDINGS: There is a 4 mm calcification in left pelvis. There are no dilated loops of bowel. There is a 3 mm stone in left kidney. IMPRESSION: 1. Unchanged 4 mm calcification in left pelvis, which may be a stone in the distal left ureter. 2. 3 mm stone in left kidney. Reviewed, dictated and finalized at location E. SITION SOCIAL WORKER IMPRESSION: 1. Unchanged 4 mm calcification in left pelvis, which may be a stone in the dis di left ureter. 2. 3 mm stone in left kidney.
== END 2023-08-03 15:51 | disposition home or self-care (01) ==
LOC: ANHIMG 15:55
PROVIDERS: PCP Internal Medicine; Visit Provider Urology
DX: N20.0 Calculus of kidney (principal)
CPT/HCPCS: 74018

== ENCOUNTER 2023-08-17 01:36 | Day surgery (SDC) | payer OTHER, SELFPAY ==
--- NOTE | 2023-08-10 09:29 | P.HP_ITS ---
History of Present Illness History of Present Illness Consent: Risks, benefits, and alternatives have been discussed and questions answered. Patient agrees to proceed with procedure. Chief complaint: Lt Ureteral Stone Narrative: Vladimir Richter is a 67 year old male the history of recurrent kidney and ureteral stones. He has had a persistent 4 mm stone in his left distal ureter that just will pass spontaneously. After discussion of options he has elected for cystoscopy with left ureteroscopy, stone extraction with possible laser lithotripsy, retrograde pyelography and stent placement. He is aware the risk including, not limited to, ureteral injury and need for additional procedures. Review of Systems Review of Systems: All systems reviewed & are unremarkable except as noted in HPI and below PMFSH Past Medical History Medical History Depression HTN (hypertension) Obesity Surgical History Surgical History H/O lithotripsy Hx of cystoscopy Social History Social History Smoking packs per day: 0.25 Smoking cigarettes per day: 5.0 Years smoked: 12 Smoking pack-years: 3.00 Smoking status: Former smoker Tobacco type: cigarettes Second hand tobacco smoke exposure: No Smoking end date: 05/29/79 Additional smoking assessment comments: STATES STOPPED SMOKING 1979 Alcohol intake: never Drinks per week: 0 Substance use: never Substance use type: does not use Last use: 05/29/79 Living arrangements: with family Gender identity (if verbalized by the patient): Male Spiritual care concerns: No Meds Home Medications and Allergies Home Medications Medication Instructions Recorded Confirmed Type amitriptyline-chlordiazepoxide 25 1 tablet PO HS 05/26/21 06/01/23 History mg-10 mg tablet losartan 50 mg tablet 50 mg PO DAILY 05/26/21 06/01/23 History ibuprofen 200 mg capsule 200 mg PO Q6H PRN Pain 01/04/22 06/01/23 History hydrocodone 5 mg-acetaminophen 325 1 - 2 tablet PO Q6H PRN pain #20 06/01/23 Rx mg tablet tabs Allergies Allergy/AdvReac Type Severity Reaction Status Date / Time carbamazepine [From Tegretol] Allergy Mild Rash Verified 06/01/23 09:02 tamsulosin AdvReac Mild Dizziness Verified 06/01/23 09:02 Exam Const: General: no acute distress Resp: Effort & Inspection: normal respiratory effort GI: Inspection: non-distended GI Palp: No abdominal tenderness and No Guarding due to palpation present (GI) Auscultation: normal bowel sounds Assessment and Plan Assessment and plan (1) Left ureteral stone: Code(s): N20.1 - Calculus of ureter Status: Acute Assessment and Plan: * Cystoscopy with left ureteroscopy, stone extraction with possible laser lithotripsy, retrograde pyelography and stent placement.
--- NOTE | 2023-08-10 14:49 | PC.NURSE ---
Report to the Outpatient Waiting Room, entrance under the green pavilion located off [facility], at time _0630 on date _08/17/23 . Planned Procedure Time: __08 . Time changes happen often and if your time is changed the preop area will call you the afternoon before. - You and your visitor will be asked to self-screen and do not enter if you have any COVID symptoms. - A mask is optional within the hospital at this time. Patients may have clear liquids (water, carbonated beverages, clear teas, apple juice) until 3 hours prior to surgery( 5:30 AM) with a maximum of 20 ounces. - No food from midnight until time of surgery - Infants may have breast milk until 4 hours before surgery, formula 6 hours prior to surgery. - Children will be allowed to drink immediately following surgery. If applicable, please bring a bottle or sippy cup to assist with drinking. Juice, water, soda, and popsicles are readily available. For infants on formula, please bring formula the day of surgery. Pacifiers are allowed. Take the following medications with a SIP of water the morning of surgery: ___NONE DO NOT STOP ANY OF YOUR OTHER PRESCRIPTION MEDICATIONS PRIOR TO SURGERY ?EXCEPT THE FOLLOWING Medications to discontinue per physician PT STATES HAS NOT HAD IBUPROFEN _FOR OVER A MONTH Please no make-up, nail cypriot, hairspray, perfume, deodorant, or body powder the day of surgery. No jewelry (including any body piercings) or valuables the day of surgery, leave them at home. Please take a shower or bath the night before, or the morning of, surgery with an antibacterial soap. Wear comfortable, loose fitting clothing. Children are encouraged to wear pajamas. - Jewelry must be removed prior to entering the operating room. Rings and piercings that are not removed may be cut off. - The hospital will not accept responsibility for valuables. - Please leave all valuables, including medications, at home the day of surgery. If you are going home after surgery, a licensed ready mix truck driver must drive you home. - NO public transportation without another adult if you receive anesthesia. - We recommend that an adult stay with you for 24 hours following discharge. - We also recommend that you do not drive, make important decision, drink alcoholic beverages, or take any drugs that were not prescribed by your health care provider for at least 24 hours after your discharge time. Follow any additional instructions given to you from your surgeon. If you or anyone in your household have experienced Covid symptoms in the past week, please notify your surgeon or the nurse liaison at the phone number below for possible testing. Telephone instructions given to _PATIENT and asked if any additional questions and then verbalized understanding. Patient advised to call surgeon office or pre surgery nurse liaison [phone] if any additional questions.
[2023-08-10 14:54] VITALS: BMI 32.3
--- NOTE | ~2023-08-17 | XR_ITS ---
Supine and upright views of the abdomen Clinical history: Left ureteral stone COMPARISON: 08/03/1943 Findings: Bowel gas pattern is nonspecific. No evidence for obstruction or free air. Probable tiny le ft renal stone present. Osseous structures are intact. Impression: Probable tiny left renal stone. Reviewed, dictated and finalized at [facility]. Impression: Probable tiny left renal stone.
--- NOTE | 2023-08-17 06:21 | WPDHPUPDATE1 ---
History and Physical Update Update Date/Time: 08/17/23 06:21 History and Physical has been reviewed, including an updated exam of the patient. There are NO changes in the patient's condition. Risks, benefits, and alternatives have been discussed and questions answered. Patient agrees to proceed with procedure.
== END 2023-08-17 07:34 | disposition home or self-care (01) ==
PROVIDERS: PCP Internal Medicine; Visit Provider Urology
PROC: (CPT 52352; principal; 2023-08-17 09:30)
DX: N20.1 Calculus of ureter (principal); Z53.9 Procedure and treatment not carried out, unspecified reason
CPT/HCPCS: 74018; 99211; G0463

== ENCOUNTER 2023-08-28 14:41 | Outpatient (CLI) | payer OTHER, SELFPAY ==
--- NOTE | ~2023-08-28 | CT_ITS ---
Non-contrast CT scan of the Abdomen and Pelvis Clinical indication: Left ureteral stone Technique: 2.5 mm axial scans were obtained through the abdomen and pelvis without intravenous or or al contrast. Dose reduction technique was used on this scan by utilizing automated exposure control a nd iterative reconstruction technique. The dose-length product (DLP) was 485.28 mGy-cm. Findings: Images through the lung bases reveal no abnormalities. 4 mm nonobstructing left renal stone present. No right renal stones seen. No ureteral stone or hydron ephrosis seen on either side.. The liver, spleen, pancreas, gallbladder, and adrenals appear normal. There is no aortic aneurysm. There is no evidence of bowel obstruction. Images through the pelvis were performed. There is no evidence of ascites or lymphadenopathy. Urinary bladder unremarkable. Prostate gland mildly enlarged. Impression: 4 mm nonobstructing left renal stone. No ureteral stone or hydronephrosis on either side. Reviewed, dictated and finalized at [facility]. Impression: 4 mm nonobstructing left renal stone. No ureteral stone or hydronephrosis on ei ther side.
== END 2023-08-28 14:42 | disposition home or self-care (01) ==
LOC: ANHIMG 14:41
PROVIDERS: PCP Internal Medicine; Visit Provider Urology
DX: N20.1 Calculus of ureter (principal); N20.0 Calculus of kidney
CPT/HCPCS: 74176

== ENCOUNTER 2024-04-06 13:44 | Outpatient (CLI) | payer OTHER, SELFPAY ==
--- NOTE | ~2024-04-06 | XR_ITS ---
Supine and upright views of the abdomen Clinical history: Renal stone COMPARISON: 08/17/2023 Findings: Bowel gas pattern is nonspecific. No evidence for obstruction or free air. Probable 3 mm le ft renal stones. Osseous structures are intact. Impression: Probable 3 mm left renal stones. Reviewed, dictated and finalized at [facility]. ICE SOCIAL WORKER Impression: Probable 3 mm left renal stones.
== END 2024-04-06 13:45 | disposition home or self-care (01) ==
PROVIDERS: PCP Internal Medicine; Visit Provider Urology
DX: N20.0 Calculus of kidney (principal)
CPT/HCPCS: 74018

== ENCOUNTER 2024-07-22 13:07 | Outpatient (CLI) | payer OTHER, SELFPAY ==
--- NOTE | ~2024-07-22 | XR_ITS ---
Exam: Abdomen 1V HISTORY: Lt ureteral stone, pain COMPARISON: 04/06/2024 TECHNIQUE: Supine images of the abdomen FINDINGS: Bowel gas pattern is non-obstructive. There is no free air or deep sulci. Redemonstration of two 5 mm calculi projecting over the upper and lower poles of the left kidney. Redemonstration of an additional 3 mm calcification projecting over the interpolar region of the left kidney. Lung bases are unremarkable. Bones and soft tissues are unremarkable. IMPRESSION: Nonspecific, nonobstructive bowel gas pattern. Redemonstration of three calcifications projecting over the left kidney, as detailed above. Reviewed, dictated and finalized at location A. RMELON HARVESTING SUPERVISOR IMPRESSION: Nonspecific, nonobstructive bowel gas pattern. Redemonstration of three calcifications projecting over the left kidney, as det jenny above.
--- OUTSIDE RECORDS SUMMARY | 2024-07-22 14:57 | XMS_ITS | Clinical Summary ---
Author Organization [facility] Virtual Care Address [address] [place] [phone] Phone Care Team Providers Care Yeast Fermentation Attendant Name Role Phone Sabas Logan MD Primary Care Provider [phone] Allergies Active Allergy Reactions Criticality Noted Date Comments Carbamazepine Rash Reaction: RASH Medications losartan (COZAAR) 50 mg tablet Take 1 tablet (50 mg total) by mouth daily 08/30/2023 Active amitriptyline-ch lordiazePOXIDE (LIMBITROL) 25-10 mg tablet TAKE 1 TABLET BY MOUTH EVERY DAY for 30 09/04/2023 Active Active Problems No known active problems Medical History Medical History Date Comments Hypercholesteremia Hypertension Osteoarthritis Kidney stone Family History Medical History Relation Name Comments Arthritis Father Gout Father Heart disease Father Arthritis Mother Diabetes Mother Heart disease Mother Relation Name Status Comments Father Mother Social History Tobacco Use Types Packs/Day Years Used Date Smoking Tobacco: Former Cigarettes Q uit: 1980 Tobacco Cessation:Counseling Given: Not Answered Personal Safety Answer Date Recorded Getting School Help Needed Not on file 08/17 Sex and Gender Information Value Date Recorded Sex Assigned at Not on file 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 Gender Identity Not on file Sexual Orientation Not on file Obstetrics History Last Filed Vital Signs Vital Sign Reading Time Taken Comments Blood Pressure 122/65 01/15/2016 10:30 AM CDT Pulse 87 01/15/2016 10:30 AM CDT Temperature 36.9 C (98.4 F) 03/26/2015 2:59 PM CDT Respiratory Rate - - Oxygen Saturation 99% 01/15/2016 10:30 AM CDT Inhaled Oxygen Concentration - - Weight 104.3 kg (230 lb) 09/25/2023 10:30 AM CDT Height 177.8 cm (5' 10 ) 09/25/2023 10:30 AM CDT Body Mass Index 33 09/25/2023 10:30 AM CDT Plan of Treatment Health Maintenance Due Date Last Done Comments Colon Cancer Screening-Colonoscopy 1955 Depression Screening 1955 Fall Risk Assessment 1955 Hepatitis C Screening 1955 DTaP/Tdap/Td Vaccine (1 - Tdap) 1964 Hepatitis B Screening 11/29/1971 Pneumococcal vaccine 65+ (1 of 1 - PCV) 11/29/2003 Zoster Vaccine (1 of 2) 11/29/2003 Abdominal Aortic Aneurysm (AAA) Screen 2018 Well Visit 65+ 2018 Influenza Vaccine (#1) 2024 Insurance Care Teams Yeast Fermentation Attendant Relationship Specialty Start Date End Date Sabas Logan MD PCP - General 09/10/18
--- OUTSIDE RECORDS SUMMARY | 2024-07-22 14:57 | XMS_ITS | Clinical Summary ---
Author Organization [facility] Address [facility] [place] [address] Care Team Providers Care Juvenile Correctional Officer Name Role Phone Sabas Logan MD Primary Care Provider [phone] Social History Tobacco Use Types Packs/Day Years Used Date Smoking Tobacco: Never Assessed Sex and Gender Information Value Date Recorded Sex Assigned at Not on file Legal Sex Male 4:39 PM CDT Gender Identity Not on file Sexual Orientation Not on file Plan of Treatment Health Maintenance Due Date Last Done Comments Colorectal Cancer Screening Colonoscopy (10 Years) 1955 Hepatitis C 11/29/1971 DTaP, Tdap and Td Vaccines ( 1 - Tdap) 1972 Zoster Vaccines (1 of 2) 11/29/2003 Pneumococcal Vaccine: 65+ Ye ars (1 of 1 - PCV) 2018 COVID-19 Vaccine ( - 2023-2 5 season) 2024 Influenza Adult (#1) 2024 RSV Immunization or 60+ Years (1 - 1-dose 75+ series) 2028 Meningococcal B Vaccine Aged Out No l onger eligible based on patient's age to complete this topic Meningococcal Vaccine Aged Out No jeffrey porfirio eligible based on patient's age to complete this topic RSV Immunizations Under 20 Months Aged Out No longer eligible based on patient's age to complete this topic Insurance [employer] Care Teams Juvenile Correctional Officer Relationship Specialty Start Date End Date Sabas Logan MD PCP - General INTERNAL MEDICINE 08/23/18
--- OUTSIDE RECORDS SUMMARY | 2024-07-22 14:57 | XMS_ITS | Referral Summary ---
Author Organization [facility] Virtual Care Address [address] [place] [phone] Phone Care Team Providers Care Licensed Professional Counselor Name Role Phone Sabas Logan MD Primary Care Provider [phone] Allergies Active Allergy Reactions Criticality Noted Date Comments Carbamazepine Rash Reaction: RASH Medications losartan (COZAAR) 50 mg tablet Take 1 tablet (50 mg total) by mouth daily 08/30/2023 Active amitriptyline-ch lordiazePOXIDE (LIMBITROL) 25-10 mg tablet TAKE 1 TABLET BY MOUTH EVERY DAY for 30 09/04/2023 Active Active Problems No known active problems Social History Tobacco Use Types Packs/Day Years Used Date Smoking Tobacco: Former Cigarettes Q uit: 1980 Tobacco Cessation:Counseling Given: Not Answered Personal Safety Answer Date Recorded Getting School Help Needed Not on file 08/17 Sex and Gender Information Value Date Recorded Sex Assigned at Not on file 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
--- OUTSIDE RECORDS SUMMARY | 2024-07-22 14:57 | XMS_ITS ---
Author Organization [facility] Address [address] [address] Care Team Providers Care Bag Inspector Name Role Phone Sabas Logan Primary Care Provider [phone] Medications Medication SIG (Take, Route, Frequency, Duration) Notes Start Date End Date Status chlordiazePOXIDE-Amitripty line 10-25 MG 1 tablet Orally Once a day for 30 days 06/04/2024 Active Encounters Encounter Location Date Provider Diagnosis [facility] [address] [place] [address] [place] [address] 06/04/2024 Sabas Logan Plan Of Treatment Medication Medication Name Sig Start Date Stop Date Notes chlordiazePOXIDE-Amitriptyli ne 10-25 MG 1 tablet Orally Once a day for 30 days 06/04/2024 Next Appt Details Provider Name:Sabas quinones, 08/26/2024 11:00:00 AM, [address] [facility] [address], [place], [address], Progress Notes * JOCELYN RICHTER WDOB:1955 (68 yo M)Acc No.[id number]:06/04/2024 Patient: JOCELYN WAYNE :1955 A ge:68 Y S ex:Male Address:[address] [place], [address] * Refills Refill chlordiazePOXIDE-Amitriptyline Tablet, 10-25 MG, Orally, 30, 1 tablet, Once a day, 30 days, Refills=1 * true * Date: Generated for Erica boyle/Padmini/Matilde on: 0 07/22/2024 03:57 PM EST
--- OUTSIDE RECORDS SUMMARY | 2024-07-22 14:57 | XMS_ITS ---
Author Organization [facility] Address [address] [address] Care Team Providers Care Project Specialist Name Role Phone Sabas Logan Primary Care Provider Medications Medication SIG (Take, Route, Frequency, Duration) Notes Start Date End Date Status Losartan Potassium 50 MG TAKE 1 TABLET B Y MOUTH EVERY DAY for 90 days Active Encounters Encounter Location Date Provider Diagnosis [facility] [address] [facility] [address] [place] [address] 07/09/2024 Sabas Logan Plan Of Treatment Medication Medication Name Sig Start Date Stop Date Notes Losartan Potassium 50 MG TAKE 1 TABLET B Y MOUTH EVERY DAY for 90 days Next Appt Details Provider Name:Sabas quinones, 08/26/2024 11:00:00 AM, [address] [facility] [address], [place], [address], Progress Notes * JOCELYN RICHTER WDOB:1955 (68 yo M)Acc No.[id number]:07/09/2024 Patient: JOCELYN WAYNE :1955 A ge:68 Y S ex:Male Address:[address] [place], [address] * Refills Refill Losartan Potassium Tablet, 50 MG, 90, TAKE 1 TABLET BY MOUTH EVERY DAY, 90 days, Refills=0 * * Date:
--- OUTSIDE RECORDS SUMMARY | 2024-07-22 14:58 | XMS_ITS ---
Author Organization [facility] Address [address] [address] Care Team Providers Care Bobbin Coil Winder Name Role Phone Sabas Logan Primary Care Provider [phone] Allergies Allergen (clinical drug ingredient) Drug/Non Drug Allergy documented on EMR Reaction Allergy Type Onset Date Status Sulfa Drugs *[id number]/22/14 (uncoded) 01/27/2015- Allergy Active carbamazepine Carbamazepine 01/27/2015- Drug Allergy Active REASON FOR VISIT F/U HTN Medications Medication SIG (Take, Route, Frequency, Duration) Notes Start Date End Date Status chlordiazePOXIDE HCl 10 MG 1 capsule Ora lly Once a day for 30 days 04/18/2019 Not-Taking Amitriptyline HCl 25 MG 1 tablet at bedt karrie Orally Once a day for 30 Not-Taking Cefuroxime Axetil 250 MG 1 tablet Orally every 12 hrs for 7 days 06/15/2018 Not-Taking Amoxicillin 500 MG 1 capsule Orally TID for 7 days 05/20/2020 Not-Taking Ceftin 250 MG 1 tablet Orally ever y 12 hrs for 7 days 05/10/2018 Not-Taking Advil 200 MG 1 tablet with food o r milk as needed Orally Three times a day Active Aleve 220MG 1 tablet as needed Orally Once a day Active Losartan Potassium 50 MG TAKE 1 TABLET B Y MOUTH EVERY DAY for 30 Active chlordiazePOXIDE-Amitriptyl ine 10-25 MG 1 tablet Orally Once a day for 30 days 04/01/2024 Active Vitamin D3 50 MCG (1999) 1 capsule Or ally Once a day Active DesOwen 0.05% 1 application to affected area Externally PRN Not-Taking Fluticasone Propionate 50 MCG/ACT 2 spray in each nostril Nasally Once a day for 30 day(s) 01/05/2018 Not-Taking Zovirax 5 % 1 application to affected area Externally Prn 04/06/2015 Not-Taking Social History Tobacco Use: Social History Observation Description Date Details (start date - stop date) Former Smoker NA - NA Tobacco Use/Smoking Question Answer Notes Are you a former smoker How long has it been since you last smoked? > 10 years Additional Findings: Tobacco Non-User Current no n-smoker Tobacco use other than smoking: Question Answer Notes Are you an other tobacco user? No Vital Signs Temperature 97.9 degrees Fahrenheit 05/16/20 24 Heart Rate 69 /min 05/16/2024 Blood pressure systolic 124 mm Hg 05/16/20 24 Blood pressure diastolic 82 mm Hg 024 Weight 234 lbs 05/16/2024 BMI 30.87 kg/m2 05/16/2024 Height 73 in 05/16/2024 Respiratory Rate 16 /min 05/16/2024 Oximetry 97 % 05/16/2024 ple Encounters Encounter Location Date Provider Diagnosis [facility] [address] [facility] [address] [place] [address] 05/16/2024 Sabas Logan Hypertension I10 ; Hyperlipidemia E78.5 ; Gastro-esophageal reflux disease without esophagitis K21.9 ; Vitamin D deficiency E55.9 and Anxiety F41.9 Assessments Encounter Date Diagnosis (ICD Code) Assessment Notes Treatment Notes Treatment Clinical Notes Section Notes 05/16/2024 Hypertension (ICD-10 - I10) High Blood Pressure: Care Instructions material was printed 05/16/2024 Hyperlipidemia (ICD-10 - E78.5) 05/16/2024 Gastro-esophageal reflux disease without esophagitis (ICD-10 - K21.9) 05/16/2024 Vitamin D deficiency (ICD-10 - E55.9) 05/16/2024 Anxiety (ICD-10 - F41.9) Plan Of Treatment Treatment Notes Assessment Notes Hypertension High Blood Pressure: Care Instructions material was printed Next Appt Details Provider Name:Sabas quinones, 08/26/2024 11:00:00 AM, [address] [facility] [address], [place], [address], Progress Notes * JOCELYN RICHTER WDOB:1955 (68 yo M)Acc No.[id number]:05/16/2024 Progress Notes Patient: JOCELYN WAYNE Provider: Bette Logan M.D. :1955 A ge:68 Y S ex:Male Date:05/16/2024 Address:[address] [facility] Subjective: * Chief Complaints: * 1 . F/U HTN. * Medical History: A nxiety, Depression, GERD(Gastroesophageal reflux disease), Hyperlipidemia, Anxiety, dissociative and somatoform disorders. * Surgical History: K idney Stone ; , Rotator Cuff Surgery ; , colonoscopy 03/2017, Lithotripsy 04/2021, Lithotripsy 01/07/2022, kidney stone removal . * Hospitalization/Major Diagno stic Procedure: S ee Surgeries . * Family History: M igFamilyHx: Father-CHF. M other: diagnosed with Diabetes mellitus without mention of complication, type II or unspecified type, not stated as uncontrolled, Unspecified essential hypertension. 4 brother(s) , 5 sister(s) . 1 son(s) . . * Social History: T obacco Use: T obacco Use/Smoking A re you a f ormer smoker, H ow long has it been since you last smoked? > 10 years, A dditional Findings: Tobacco Non-User C urrent non-smoker. T obacco use other than smoking A re you an other tobacco user? N o. M igSocialHx: M igSocialHx: Alcohol Use (ANS-No) ;Drug Use (ANS-No) ;Lives In (ANS-Home) ;Lives With (ANS-Spouse) ;Smoking status (ANS-Former smoker) ;. D rugs/Alcohol: D rugs H ave you used drugs other than those for medical reasons in the past 12 months??No. C affeine I ntake: 1 -2 cups per day. D o you smoke marijuana?: Denies. Do you drink alcohol?: No. * Medications: T aking Vitamin D3 50 MCG (1999 UT) Capsule 1 capsule Orally Once a day , Taking Aleve 220MG Tablet 1 tablet as needed Orally Once a day , Taking Advil 200 MG Tablet 1 tablet with food or milk as needed Orally Three times a day , Taking chlordiazePOXIDE-Amitriptyline 10-25 MG Tablet 1 tablet Orally Once a day , Taking Losartan Potassium 50 MG Tablet TAKE 1 TABLET BY MOUTH EVERY DAY , Not- Taking/PRN Amitriptyline HCl 25 MG Tablet 1 tablet at bedtime Orally Once a day , Not- Taking/PRN chlordiazePOXIDE HCl 10 MG Capsule 1 capsule Orally Once a day , Not-Taking/PRN Amoxicillin 500 MG Capsule 1 capsule Orally TID , Not-Taking/PRN Cefuroxime Axetil 250 MG Tablet 1 tablet Orally every 12 hrs , Not-Taking/PRN Ceftin 250 MG Tablet 1 tablet Orally every 12 hrs , Not-Taking/PRN Fluticasone Propionate 50 MCG/ACT Suspension 2 spray in each nostril Nasally Once a day , Not-Taking/PRN Zovirax 5 % Cream 1 application to affected area Externally Prn , Not-Taking/PRN DesOwen 0.05% Cream 1 application to affected area Externally PRN , Medication List reviewed and reconciled with the patient * Allergies: S ulfa Drugs */22/14: 01/27/2015- - Allergy, Carbamazepine: 01/27/2015- - Allergy. Objective: * Vitals: T emp:97.9F, HR:69/min, BP:124/82mm Hg, Wt:234lbs, BMI:30.87Index, Ht: 73 in, RR:16/min, Oxygen sat %:97%, Peak Flow: RA, Wt-k.14 kg. ple. Assessment: * Assessment: 1. H ypertension - I10 (Primary) 2 . H yperlipidemia - E78.5 ?3. G tye-esophageal reflux disease without esophagitis - K21.9 4 . V itamin D deficiency - E55.9 5 . A nxiety - F41.9 Plan: * Treatment: * Preventive Medicine: Your Preventative Wellness Plan: I nfluenza Vaccine I nfluenza vaccine should be given once every flu season. STATUS: U p to date, D ate of last flu vaccine: 0 02/21/2024 High Dose Flu Vaccine. * * Electronic signature of Michael Logan MD on 07/22/2024 at 03:57 PM EST Sign off status: Pending * Provider: Bette Logan M.D. Date: 07/17/2023 Generated for Erica boyle/Padmini/Matilde on: 0 07/22/2024 03:57 PM EST
== END 2024-07-22 13:08 | disposition home or self-care (01) ==
LOC: ANHIMG 13:09
PROVIDERS: PCP Internal Medicine; Visit Provider Urology
DX: R93.3 Abnormal findings on diagnostic imaging of other parts of digestive tract (principal); N28.89 Other specified disorders of kidney and ureter; N20.1 Calculus of ureter
CPT/HCPCS: 74018

== ENCOUNTER 2024-07-26 15:31 | Outpatient (CLI) | payer OTHER, SELFPAY | END 2024-07-26 15:32 | disposition home or self-care (01) | LOC: ANHIMG 15:33 | PROVIDERS: PCP Internal Medicine; Visit Provider Urology | DX: N20.0 Calculus of kidney (principal); N21.0 Calculus in bladder | CPT/HCPCS: 74176 ==

== ENCOUNTER 2024-10-07 11:24 | Outpatient (CLI) | payer OTHER, SELFPAY ==
--- NOTE | ~2024-10-07 | XR_ITS ---
XR abdomen/kub 1V Ordering provider: Isaías Mak MD History: . lt ureteral stone . Comparison: July 22, 2024 FINDINGS: BOWEL: Nonobstructive bowel gas pattern. ORGANOMEGALY: None. SIGNIFICANT PATHOLOGIC CALCIFICATIONS: Left tiny kidney stone. Possible faint calcification in the ri ght kidney area. OTHER: No free air is seen under the diaphragm. IMPRESSION: NO ACUTE ABDOMINAL FINDINGS. Left tiny kidney stone. Possible right kidney stone. Noncontrast CT is better for evaluation. Reviewed, dictated and finalized at location A. IMPRESSION: NO ACUTE ABDOMINAL FINDINGS. Left tiny kidney stone. Possible right kidney stone. Noncontrast CT is better f or evaluation.
--- OUTSIDE RECORDS SUMMARY | 2024-10-07 11:38 | XMS_ITS | Clinical Summary ---
Author Organization [facility] Address [address] [place] [address] Care Team Providers Care Delivery Tech Name Role Phone Sabas Logan MD Primary Care Provider [phone] Social History Tobacco Use Types Packs/Day Years [...] Td Vaccines ( 1 - Tdap) 1972 Pneumococcal Vaccine: 50+ Ye ars (1 of 1 - PCV) 11/29/2003 Zoster Vaccines (1 of 2) 11/29/2003 COVID-19 Vaccine ( - 2023-2 5 season) 2024 RSV Immunization or 60+ Years (1 [...] patient's age to complete this topic Insurance [employer] Care Teams Delivery Tech Relationship Specialty Start Date End Date Sabas Logan MD PCP - General INTERNAL MEDICINE 08/23/18
--- OUTSIDE RECORDS SUMMARY | 2024-10-07 11:38 | XMS_ITS | Referral Summary ---
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
--- OUTSIDE RECORDS SUMMARY | 2024-10-07 11:38 | XMS_ITS | Clinical Summary ---
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
--- OUTSIDE RECORDS SUMMARY | 2024-10-07 11:38 | XMS_ITS ---
Author Organization [facility] Address [address] [address] Care Team Providers Care Field Service Coordinator Name Role Phone Sabas Logan Primary Care Provider [phone] Medications Medication SIG (Take, Route, Frequency, Duration) Notes Start Date End Date Status chlordiazePOXIDE-Amitripty line 10-25 MG 1 tablet Orally Once a day for 30 days 10/01/2024 Active Encounters Encounter Location Date Provider Diagnosis [facility] [address] [facility] [address] [place] [address] 10/01/2024 Sabas Logan Plan Of Treatment Medication Medication Name Sig Start Date Stop Date Notes chlordiazePOXIDE-Amitriptyli ne 10-25 MG 1 tablet Orally Once a day for 30 days 10/01/2024 Next Appt Details Provider Name:Sabas quinones, 12/11/2024 10:30:00 AM, [address] [facility], [facility], [place], [address], Provider Name:Sabas quinones, 12/11/2024 11:00:00 AM, [address] [facility] [address], [place], [address], Progress Notes * JOCELYN RICHTER WDOB:1955 (68 yo M)Acc No.[id number]:10/01/2024 Patient: JOCELYN WAYNE :1955 A ge:68 Y S ex:Male Address:[address] [place] [address], [address] * Refills Refill chlordiazePOXIDE-Amitriptyline Tablet, 10-25 MG, Orally, 30, 1 tablet, Once a day, 30 days, Refills=1 * true * Date: Generated for Erica boyle/Padmini/Madisonitting on: 0 10/07/2024 12:38 PM EDT
--- OUTSIDE RECORDS SUMMARY | 2024-10-07 11:38 | XMS_ITS ---
Author Organization [facility] Address [address] [address] Care Team Providers Care Petroleum Blending Plant Operator Name Role Phone Sabas Logan Primary Care Provider Allergies Allergen (clinical drug ingredient) Drug/Non Drug Allergy documented on EMR Reaction Allergy Type Onset Date Status Sulfa Drugs */22/14 (uncoded) 01/27/2015- Allergy Active carbamazepine Carbamazepine 01/27/2015- Drug Allergy Active REASON FOR VISIT F/U on HTN Medications Medication SIG (Take, Route, Frequency, Duration) Notes Start Date End Date Status Amoxicillin 500 MG 1 capsule Orally TID for 7 days 05/20/2020 Not-Taking Ceftin 250 MG 1 tablet Orally ever y 12 hrs for 7 days 05/10/2018 Not-Taking Cefuroxime Axetil 250 MG 1 tablet Orally every 12 hrs for 7 days 06/15/2018 Not-Taking Zovirax 5 % 1 application to affected area Externally Prn 04/06/2015 Not-Taking DesOwen 0.05% 1 application to affected area Externally PRN Not-Taking Losartan Potassium 50 MG TAKE 1 TABLET B Y MOUTH EVERY DAY for 90 days Active Advil 200 MG 1 tablet with food o r milk as needed Orally Three times a day Active Amitriptyline HCl 25 MG 1 tablet at bedt karrie Orally Once a day for 30 Not-Taking chlordiazePOXIDE-Amitriptyl ine 10-25 MG 1 tablet Orally Once a day for 30 days 07/30/2024 Active chlordiazePOXIDE HCl 10 MG 1 capsule Ora lly Once a day for 30 days 04/18/2019 Not-Taking Aleve 220MG 1 tablet as needed Orally Once a day Active Vitamin D3 50 MCG (2000 UT) 1 capsule Or ally Once a day Active Fluticasone Propionate 50 MCG/ACT 2 spray in each nostril Nasally Once a day for 30 days 01/05/2018 Active Problems Problem Type SNOMED Code ICD Code Onset Dates Problem Status W/U Status Risk Notes Problem IBS (irritable bowel syndrome) (K58.9) Active confirmed Vital Signs Temperature 97.9 degrees Fahrenheit 09/05/19 25 Heart Rate 76 /min 09/04/2024 Respiratory Rate 16 /min 09/04/2024 Height 73 in 09/04/2024 Weight 237 lbs 09/04/2024 BMI 31.26 kg/m2 09/04/2024 Oximetry 96 % 09/04/2024 Encounters Encounter Location Date Provider Diagnosis [address] [address] 09/04/2024 Sabas Logan Hypertension I10 ; Hyperlipidemia [...] nostril Nasally Once a day for 30 days 01/05/2018 Treatment Notes Assessment Notes Hypertension High Blood Pressure: Care Instructions material was printed Next Appt Details Provider Name:Sabas quinones, 12/11/2024 10:30:00 AM, [address] [facility], [facility] [address], [place], [address], Provider Name:Sabas quinones, 12/11/2024 11:00:00 AM, [address] [facility], [address], [place], [address], Progress Notes * JOCELYN RICHTER WDOB:1955 (68 yo M)Acc No.[id number]:09/04/2024 Progress Notes Patient: JOCELYN WAYNE Provider: Bette Logan M.D. :1955 A ge:68 Y S ex:Male Date:09/04/2024 Address:[address] [place], [place] [id number] Subjective: * Chief Complaints: * 1 . F/U on HTN. * Medical History: A nxiety, Depression, [...] the patient * Allergies: S ulfa Drugs *zjuhytx44/22/14: 01/27/2015- - Allergy, Carbamazepine: 01/27/2015- - Allergy. Objective: * Vitals: T emp:97.9F, HR:76/min, Wt:237lbs, BMI:31.26Index, Ht: 73 in, RR:16/min, Oxygen sat %:96%, Peak Flow: RA, Wt-k.5 kg. Assessment: * Assessment: 1. H ypertension - [...] Electronic signature of Michael Logan MD on 10/07/2024 at 12:38 PM EDT Sign off status: Pending * Provider: Bette Logan M.D. Date: 0 09/04/2024 Generated for Erica boyle/Padmini/Matilde on: 0 10/07/2024 12:38 PM EDT
--- OUTSIDE RECORDS SUMMARY | 2024-10-07 11:39 | XMS_ITS | Patient Health Record ---
Author Organization [facility] Address [address] [address] Care Team Providers Care Foster Care Case Manager Name Role Phone Sabas Logan Primary Care Provider Allergies Allergen (clinical drug ingredient) Drug/Non Drug Allergy documented on EMR Reaction Allergy Type Onset Date Status Sulfa Drugs *towandx44/22/14 (uncoded) 01/27/2015- Allergy Active carbamazepine Carbamazepine 01/27/2015- Drug Allergy Active Reason For Referral No Information Medications Medication SIG (Take, Route, Frequency, Duration) Notes Start Date End Date Status Amoxicillin 500 MG 1 capsule Orally TID for 7 days 05/20/2020 Not-Taking Fluticasone Propionate 50 MCG/ACT 2 spray in each nostril Nasally Once a day for 30 days 01/05/2018 Active chlordiazePOXIDE HCl 10 MG 1 capsule Ora lly Once a day for 30 days 04/18/2019 Not-Taking Ceftin 250 MG 1 tablet Orally ever y 12 hrs for 7 days 05/10/2018 Not-Taking Cefuroxime Axetil 250 MG 1 tablet Orally every 12 hrs for 7 days 06/15/2018 Not-Taking Zovirax 5 % 1 application to affected area Externally Prn 04/06/2015 Not-Taking Losartan Potassium 50 MG TAKE 1 TABLET B Y MOUTH EVERY DAY for 90 days Active DesOwen 0.05% 1 application to affected area Externally PRN Not-Taking chlordiazePOXIDE-Amitriptyl ine 10-25 MG 1 tablet Orally Once a day for 30 days 10/01/2024 Active Aleve 220MG 1 tablet as needed Orally Once a day Active Vitamin D3 50 MCG (1999) 1 capsule Or ally Once a day Active Advil 200 MG 1 tablet with food o r milk as needed Orally Three times a day Active Amitriptyline HCl 25 MG 1 tablet at bedt karrie Orally Once a day for 30 Not-Taking Immunizations Vaccine Route Administration Date Status Comme nts FLUAD FLU QUADRIVALENT NO PRSV 0.5ML IM Intramuscular 02/21/2024 Administered FLUAD FLU QUADRIVALENT NO PRSV 0.5ML Unknown 03/29/2018 Administered Patient had a flu shot at an outside source FLUAD FLU QUADRIVALENT NO PRSV 0.5ML IM Intramuscular 07/07/2021 Administered FLUAD FLU QUADRIVALENT NO PRSV 0.5ML IM Intramuscular 02/20/2023 Administered Influenza (Split) seasonal IM Intramuscular 03/11/2022 Administered Influenzal (split), seasonal, intermuscular,preser vative free Unknown 02/17/2017 Administered Social History Tobacco Use: Social History Observation [...] Are you an other tobacco user? No Problems Problem Type SNOMED Code ICD Code Onset Dates Problem Status W/U Status Risk Notes Problem Major depression, single episode (15041603) Major depressive disorder, single episode, unspecified (F32.9) Active confirmed Problem 75114737 Major depressive disorder, recurrent, in remission, unspecified (F33.40) Active confirmed Problem Gastro-esophageal reflux disease without esophagitis (844836713) Gastro-esophageal reflux disease without esophagitis (K21.9) Active confirmed Problem Hypertension (61913123) Hypertension (I10) Active confirmed Problem 81002422 Hyperlipidemia (E78.5) Active confirmed Problem 94294537 Hyperglycemia (R73.9) Active confirmed Problem 12852252 Anxiety (F41.9) Active confirmed Problem 35743241 Vitamin D deficiency (E55.9) Active confirmed Problem 546597388 Back pain (M54.9) Active confirmed Problem Lipoma (61609481) Lipoma (D17.9) Active confirm ed Problem Obesity (086794258) Obesity (E66.9) Active conf irmed Problem Irritable bowel syndrome (02144686) IBS (irritable bowel syndrome) (K58.9) Active confirmed Problem Cellulitis (280633279) Cellulitis (L03.90) Active confirmed Problem 947679397 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) Active confirmed Problem 20318844 Allergic rhinitis, unspecified seasonality, unspecified trigger (J30.9) Active confirmed Problem 36158271 Testicular mass (N50.9) Active confirmed Problem Kidney stone (70752021) Kidney stone on left side (N20.0) Active confirmed Problem 35088740895559411 Laceration of right middle finger without foreign body with damage to nail, initial encounter (S61.312A) Active confirmed Problem 233226741 Laceration of left foot, initial encounter (S91.312A) Active confirmed Vital Signs Heart Rate 76 /min 09/04/2024 Temperature 97.9 degrees Fahrenheit 09/04/2024 Respiratory Rate 16 /min 09/04/2024 Oximetry 96 % 09/04/2024 Blood pressure diastolic 82 mm Hg 05/16/2024 ple Height 73 in 09/04/2024 Blood pressure systolic 124 mm Hg 05/16/2024 ple Weight 237 lbs 09/04/2024 BMI 31.26 kg/m2 09/04/2024 Encounters Encounter Location Date Provider Diagnosis [address] [address] 10/18/2023 Sabas Logan Hypertension I10 ; Hyperlipidemia E78.5 ; Gastro-esophageal reflux disease without esophagitis K21.9 ; Vitamin D deficiency E55.9 ; Anxiety F41.9 and Back pain M54.9 [place] [address] [address] 02/21/2024 Sabas Logan Hypertension I10 ; Hyperlipidemia E78.5 ; Vitamin D deficiency E55.9 ; Anxiety F41.9 ; Major depressive disorder, recurrent, in remission, unspecified F33.40 and Lipoma D17.9 [place] [address] [address] 05/16/2024 Sabas Logan Hypertension I10 ; Hyperlipidemia E78.5 ; Gastro-esophageal reflux disease without esophagitis K21.9 ; Vitamin D deficiency E55.9 and Anxiety F41.9 [facility] [address] [facility] [address] [place] [address] 09/04/2024 Sabas Logan Hypertension I10 ; Hyperlipidemia E78.5 ; Gastro-esophageal reflux disease without esophagitis K21.9 ; Vitamin D deficiency E55.9 ; Hyperglycemia R73.9 ; IBS (irritable bowel syndrome) K58.9 ; Obesity E66.9 and Allergic rhinitis, unspecified seasonality, unspecified trigger J30.9 [facility] [address] [address] 01/25/2024 Sabas Logan [facility] [address] [address] 07/09/2024 Sabas [facility] [address] [address] 11/02/2023 Sabas Logan [facility] [address] [address] 11/29/2023 Sabas Logan [facility] [address] [address] 01/02/2024 Sabas Logan [facility] [address] [address] 02/05/2024 Sabas Logan [facility] [address] [address] 03/06/2024 Sabas Logan [facility] [address] [address] 04/01/2024 Sabas Logan [facility] [address] [address] 06/04/2024 Sabas Mirzaberg [facility] [address] [address] 07/30/2024 Sabas Logan [facility] [address] [address] 10/01/2024 Sabas Logan Assessments Encounter Date Diagnosis (ICD Code) Assessment Notes Treatment Notes Treatment Clinical Notes Section Notes 10/18/2023 Hypertension (ICD-10 - I10) High Blood Pressure: Care Instructions material was printed hypertension: Stable. Continue same treatment. Hyperlipidemia : Stable. Continue watching the diet. Declines medications. GERD: Stable. Continue same treatment. Vitamin D deficiency: Continue with vitamin D supplement. Anxiety: Stable. Continue same medications. No homicidal or suicidal ideation. Chronic back pain: Stable. No issues presently. Labs reviewed with the patient and explained. Labs include lipid, CMP, CBC, PSA. His questions are answered. Diet, low fat diet and low sugar diet explained. Regular exercises stressed. Follow up in 3 months with BMP, CBC, TSH and vitamin D level. 02/21/2024 Hypertension (ICD-10 - I10) High Blood Pressure: Care Instructions material was printed hypertension: Stable. Continue same treatment. Hyperlipidemia : Stable. Continue same treatment. Continue with the diet. He refuses medications. Vitamin D deficiency: Stable. Continue with vitamin D supplementatio n. Depression: Stable. No homicidal or suicidal ideation. Continue same treatment. Lipoma: Patient is a small lipoma on the back. He refuses to see surgery presently. He has no symptoms presently. Lab results are reviewed which include BMP, CBC, TSH and vitamin D level. Periods medications reviewed and reconciled. Side effects discussed. lab results reviewed with the patient and explained. diet explained. vital exercises stressed. Follow-up in 3 months with lipid, CMP, CBC. 05/16/2024 Hypertension (ICD-10 - I10) High Blood Pressure: Care Instructions material was printed 09/04/2024 Hypertension (ICD-10 - I10) High Blood Pressure: Care Instructions material was printed 09/04/2024 Hyperlipidemia (ICD-10 - E78.5) 09/04/2024 Gastro-esophageal reflux disease without esophagitis (ICD-10 - K21.9) 05/16/2024 Hyperlipidemia (ICD-10 - E78.5) 02/21/2024 Hyperlipidemia (ICD-10 - E78.5) hypertension: Stable. Continue same treatment. Hyperlipidemia : Stable. Continue same treatment. Continue with the diet. He refuses medications. Vitamin D deficiency: Stable. Continue with vitamin D supplementatio n. Depression: Stable. No homicidal or suicidal ideation. Continue same treatment. Lipoma: Patient is a small lipoma on the back. He refuses to see surgery presently. He has no symptoms presently. Lab results are reviewed which include BMP, CBC, TSH and vitamin D level. Periods medications reviewed and reconciled. Side effects discussed. lab results reviewed with the patient and explained. diet explained. vital exercises stressed. Follow-up in 3 months with lipid, CMP, CBC. 10/18/2023 Hyperlipidemia (ICD-10 - E78.5) hypertension: Stable. Continue same treatment. Hyperlipidemia : Stable. Continue watching the diet. Declines medications. GERD: Stable. Continue same treatment. Vitamin D deficiency: Continue with vitamin D supplement. Anxiety: Stable. Continue same medications. No homicidal or suicidal ideation. Chronic back pain: Stable. No issues presently. Labs reviewed with the patient and explained. Labs include lipid, CMP, CBC, PSA. His questions are answered. Diet, low fat diet and low sugar diet explained. Regular exercises stressed. Follow up in 3 months with BMP, CBC, TSH and vitamin D level. 10/18/2023 Gastro-esophageal reflux disease without esophagitis (ICD-10 - K21.9) hypertension: Stable. Continue same treatment. Hyperlipidemia : Stable. Continue watching the diet. Declines medications. GERD: Stable. Continue same treatment. Vitamin D deficiency: Continue with vitamin D supplement. Anxiety: Stable. Continue same medications. No homicidal or suicidal ideation. Chronic back pain: Stable. No issues presently. Labs reviewed with the patient and explained. Labs include lipid, CMP, CBC, PSA. His questions are answered. Diet, low fat diet and low sugar diet explained. Regular exercises stressed. Follow up in 3 months with BMP, CBC, TSH and vitamin D level. 02/21/2024 Vitamin D deficiency (ICD-10 - E55.9) hypertension: Stable. Continue same treatment. Hyperlipidemia : Stable. Continue same treatment. Continue with the diet. He refuses medications. Vitamin D deficiency: Stable. Continue with vitamin D supplementatio n. Depression: Stable. No homicidal or suicidal ideation. Continue same treatment. Lipoma: Patient is a small lipoma on the back. He refuses to see surgery presently. He has no symptoms presently. Lab results are reviewed which include BMP, CBC, TSH and vitamin D level. Periods medications reviewed and reconciled. Side effects discussed. lab results reviewed with the patient and explained. diet explained. vital exercises stressed. Follow-up in 3 months with lipid, CMP, CBC. 05/16/2024 Gastro-esophageal reflux disease without esophagitis (ICD-10 - K21.9) 09/04/2024 Vitamin D deficiency (ICD-10 - E55.9) 05/16/2024 Vitamin D deficiency (ICD-10 - E55.9) 09/04/2024 Hyperglycemia (ICD-10 - R73.9) 02/21/2024 Anxiety (ICD-10 - F41.9) hypertension: Stable. Continue same treatment. Hyperlipidemia : Stable. Continue same treatment. Continue with the diet. He refuses medications. Vitamin D deficiency: Stable. Continue with vitamin D supplementatio n. Depression: Stable. No homicidal or suicidal ideation. Continue same treatment. Lipoma: Patient is a small lipoma on the back. He refuses to see surgery presently. He has no symptoms presently. Lab results are reviewed which include BMP, CBC, TSH and vitamin D level. Periods medications reviewed and reconciled. Side effects discussed. lab results reviewed with the patient and explained. diet explained. vital exercises stressed. Follow-up in 3 months with lipid, CMP, CBC. 10/18/2023 Vitamin D deficiency (ICD-10 - E55.9) hypertension: Stable. Continue same treatment. Hyperlipidemia : Stable. Continue watching the diet. Declines medications. GERD: Stable. Continue same treatment. Vitamin D deficiency: Continue with vitamin D supplement. Anxiety: Stable. Continue same medications. No homicidal or suicidal ideation. Chronic back pain: Stable. No issues presently. Labs reviewed with the patient and explained. Labs include lipid, CMP, CBC, PSA. His questions are answered. Diet, low fat diet and low sugar diet explained. Regular exercises stressed. Follow up in 3 months with BMP, CBC, TSH and vitamin D level. 10/18/2023 Anxiety (ICD-10 - F41.9) hypertension: Stable. Continue same treatment. Hyperlipidemia : Stable. Continue watching the diet. Declines medications. GERD: Stable. Continue same treatment. Vitamin D deficiency: Continue with vitamin D supplement. Anxiety: Stable. Continue same medications. No homicidal or suicidal ideation. Chronic back pain: Stable. No issues presently. Labs reviewed with the patient and explained. Labs include lipid, CMP, CBC, PSA. His questions are answered. Diet, low fat diet and low sugar diet explained. Regular exercises stressed. Follow up in 3 months with BMP, CBC, TSH and vitamin D level. 02/21/2024 Major depressive disorder, recurrent, in remission, unspecified (ICD-10 - F33.40) hypertension: Stable. Continue same treatment. Hyperlipidemia : Stable. Continue same treatment. Continue with the diet. He refuses medications. Vitamin D deficiency: Stable. Continue with vitamin D supplementatio n. Depression: Stable. No homicidal or suicidal ideation. Continue same treatment. Lipoma: Patient is a small lipoma on the back. He refuses to see surgery presently. He has no symptoms presently. Lab results are reviewed which include BMP, CBC, TSH and vitamin D level. Periods medications reviewed and reconciled. Side effects discussed. lab results reviewed with the patient and explained. diet explained. vital exercises stressed. Follow-up in 3 months with lipid, CMP, CBC. 05/16/2024 Anxiety (ICD-10 - F41.9) 09/04/2024 IBS (irritable bowel syndrome) (ICD-10 - K58.9) 09/04/2024 Obesity (ICD-10 - E66.9) 10/18/2023 Back pain (ICD-10 - M54.9) hypertension: Stable. Continue same treatment. Hyperlipidemia : Stable. Continue watching the diet. Declines medications. GERD: Stable. Continue same treatment. Vitamin D deficiency: Continue with vitamin D supplement. Anxiety: Stable. Continue same medications. No homicidal or suicidal ideation. Chronic back pain: Stable. No issues presently. Labs reviewed with the patient and explained. Labs include lipid, CMP, CBC, PSA. His questions are answered. Diet, low fat diet and low sugar diet explained. Regular exercises stressed. Follow up in 3 months with BMP, CBC, TSH and vitamin D level. 02/21/2024 Lipoma (ICD-10 - D17.9) hypertension: Stable. Continue same treatment. Hyperlipidemia : Stable. Continue same treatment. Continue with the diet. He refuses medications. Vitamin D deficiency: Stable. Continue with vitamin D supplementatio n. Depression: Stable. No homicidal or suicidal ideation. Continue same treatment. Lipoma: Patient is a small lipoma on the back. He refuses to see surgery presently. He has no symptoms presently. Lab results are reviewed which include BMP, CBC, TSH and vitamin D level. Periods medications reviewed and reconciled. Side effects discussed. lab results reviewed with the patient and explained. diet explained. vital exercises stressed. Follow-up in 3 months with lipid, CMP, CBC. 09/04/2024 Allergic rhinitis, unspecified seasonality, unspecified trigger (ICD-10 - J30.9) Plan Of Treatment Next Appt Details Provider Name:Sabas quinones, 12/11/2024 10:30:00 AM, [address] [facility], [address], [place], [address], Provider Name:Sabas quinones, 12/11/2024 11:00:00 AM, [address] [facility], [address], [place], [address], Insurance Providers Payer Name Payer Address Payer Phone Subscriber Number Group Number Insured Name Patient Relationship to Insured Coverage Start Date Coverage End Date [employer] OPEN ACC [id number] [address] [place] [id number] JOCELYN RICHTER Self - patient is the insured 5 Medications Administered Medication Instructions Date of Administration Dosage Notes Depo Medro 40mg 04/27/2022 40 mg Medical (General) History Medical History History ICD Code Anxiety Depression GERD(Gastroesophageal reflux disease) Hyperlipidemia Anxiety, dissociative and somatoform dis orders Surgical History Surgery Date(Month/Year) Kidney Stone ; Rotator Cuff Surgery ; colonoscopy 03/2017 Lithotripsy 04/2021 Lithotripsy 01/07/2022 kidney stone removal Hospitalization History Reason Date(Month/Year) See Surgeries
--- OUTSIDE RECORDS SUMMARY | 2024-10-07 11:39 | XMS_ITS ---
Author Organization [facility] Address [address] [address] Care Team Providers Care Cut Off Machine Operator Name Role Phone Sabas Logan Primary Care Provider [phone] Encounters Encounter Location Date Provider Diagnosis [facility] [address] [facility] [address] [place] [address] 08/26/2024 Sabas Logan Plan Of Treatment Next Appt Details Provider Name:Sabas Reggie Shane quinones, 12/11/2024 10:30:00 AM, [address] [facility], [facility], [place], [address], Provider Name:Sabassandie quinones, 12/11/2024 11:00:00 AM, [address] [facility], [facility], [place], [address], Progress Notes * JOCELYN RICHTER WDOB:1955 (68 yo M)Acc No.[id number]:08/26/2024 Progress Notes Patient: Jerald JOCELYN TREVINO Provider: Bette Logan M.D. :1955 A ge:68 Y S ex:Male Date:08/26/2024 [address] [id number] Subjective: * Chief Complaints: * * Medical History: Objective: * Vitals: Assessment: Plan: * Treatment: * * Electronic signature of Michael Logan MD on 10/07/2024 at 12:39 PM EDT Sign off status: Pending * Provider: Bette Logan M.D. Date: 0 08/26/2024 Generated for Erica boyle/Padmini/Matilde on: 0 10/07/2024 12:39 PM EDT
== END 2024-10-07 11:25 | disposition home or self-care (01) ==
PROVIDERS: PCP Internal Medicine; Visit Provider Urology
DX: N20.0 Calculus of kidney (principal)
CPT/HCPCS: 74018

== ENCOUNTER 2024-10-29 14:09 | Outpatient (CLI) | payer OTHER, SELFPAY ==
--- NOTE | ~2024-10-29 | XR_ITS ---
Supine and upright views of the abdomen Clinical history: Left ureteral stone, left abdominal pain COMPARISON: 10/07/2024 Findings: Bowel gas pattern is nonspecific. No evidence for obstruction or free air. Possible small l eft kidney stone present. Osseous structures are intact. Impression: Possible small left renal stone. Reviewed, dictated and finalized at [facility]. Impression: Possible small left renal stone.
--- OUTSIDE RECORDS SUMMARY | 2024-10-29 14:15 | XMS_ITS ---
Author Organization [facility] Address [address] [address] Care Team Providers Care Group Care Worker Name Role Phone Sabas Logan Primary Care Provider Allergies Allergen (clinical drug ingredient) Drug/Non Drug Allergy documented on EMR Reaction Allergy Type Onset Date Status Sulfa Drugs *zmfsicz18/22/14 (uncoded) 01/27/2015- Allergy Active carbamazepine Carbamazepine 01/27/2015- [...] 09/04/2024 Encounters Encounter Location Date Provider Diagnosis [address] [address] 09/04/2024 Sabas Logan Hypertension I10 ; Hyperlipidemia [...] Name:Sabas quinones, 12/11/2024 10:30:00 AM, [address] [facility], [facility], [place], [address], Provider Name:Sabas quinones, 12/11/2024 11:00:00 AM, [address] [facility], [address], [place], [address], Progress Notes * JOCELYN RICHTER WDOB:1955 (68 yo M)Acc No.[id number]:09/04/2024 Progress Notes Patient: JOCELYN WAYNE Provider: Bette Logan M.D. :1955 A ge:68 Y S ex:Male Date:09/04/2024 Address:[address] [place], [place] [id number] Subjective: * Chief Complaints: * 1 . [...] the patient * Allergies: S ulfa Drugs *wxfocbg79/22/14: 01/27/2015- - Allergy, Carbamazepine: 01/27/2015- - Allergy. [...] Electronic signature of Michael Logan MD on 10/29/2024 at 03:14 PM EDT Sign off status: Pending * Provider: Bette Logan M.D. Date: 0 09/04/2024 Generated for Erica boyle/Padmini/Matilde on: 0 10/29/2024 03:14 PM EDT
--- OUTSIDE RECORDS SUMMARY | 2024-10-29 14:15 | XMS_ITS ---
Author Organization [facility] Address [address] [address] Care Team Providers Care Police Matron Name Role Phone Sabas Logan Primary Care Provider Encounters Encounter Location Date Provider Diagnosis [facility] [address] [facility] [address] [place] [address] 08/26/2024 Sabas Logan Plan Of Treatment Next Appt Details Provider Name:Sabas Reggie Shane quinones, 12/11/2024 10:30:00 AM, [address] [facility], [facility], [place], [address], Provider Name:Sabassandie quinones, 12/11/2024 11:00:00 AM, [address] [facility], [facility], [place], [address], Progress Notes * JOCELYN RICHTER WDOB:1955 (68 yo M)Acc No.[id number]:08/26/2024 Progress Notes Patient: Jerald JOCELYN TREVINO Provider: Bette Logan M.D. :1955 A ge:68 Y S ex:Male Date:08/26/2024 [address] [id number] Subjective: * Chief Complaints: * * Medical History: Objective: * Vitals: Assessment: Plan: * Treatment: * * Electronic signature of Michael Logan MD on 10/29/2024 at 03:14 PM EDT Sign off status: Pending * Provider: Betet Logan M.D. Date: 0 08/26/2024 Generated for Erica boyle/Padmini/Matilde on: 0 10/29/2024 03:14 PM EDT
--- OUTSIDE RECORDS SUMMARY | 2024-10-29 14:15 | XMS_ITS | Referral Summary ---
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
--- OUTSIDE RECORDS SUMMARY | 2024-10-29 14:15 | XMS_ITS ---
Author Organization [facility] & [facility] Address [address] [address] Care Team Providers Care Cadastral Surveyor Name Role Phone Sabas Logan Primary Care Provider [phone] Allergies Allergen (clinical drug ingredient) Drug/Non Drug [...] Signs Temperature 97.9 degrees Fahrenheit 05/16/20 24 Blood pressure systolic 124 mm Hg 05/16/20 24 Blood pressure diastolic 82 mm Hg 024 Heart Rate 69 /min 05/16/2024 Respiratory Rate 16 /min 05/16/2024 Height 73 in 05/16/2024 Weight 234 lbs 05/16/2024 BMI 30.87 kg/m2 05/16/2024 Oximetry 97 % 05/16/2024 ple Encounters Encounter Location Date Provider Diagnosis [facility] [address] [facility] [address] [place] [address] 05/16/2024 Sabas Logan Hypertension I10 ; Hyperlipidemia [...] Name:Sabas quinones, 12/11/2024 10:30:00 AM, [address] [facility] [address], [place], [address], Provider Name:Sabas A Shane quinones, 12/11/2024 11:00:00 AM, [address] [facility] [address] [facility], [address], [place], [address], Progress Notes * JOCELYN RICHTER WDOB:1955 (68 yo M)Acc No.[id number]:05/16/2024 Progress Notes Patient: JOCELYN WAYNE Provider: Bette Logan M.D. :1955 A ge:68 Y S ex:Male Date:05/16/2024 Address:[address] [place] [address] [facility] Subjective: * Chief Complaints: * 1 . F/U HTN. * ROS: C onstitutional: No C [...] enies N arabella discharge. D enies N arablela obstruction . D enies N osebleeds. D [...] V aginal discharge . M usculoskeletal: Denies B ack pain . A dmits J oint pain . D enies J oint swelling . D enies L imited range of motion . D enies M uscle aches.?Denies M uscle weakness . D enies S [...] enies R ecurrent infections . A llergic/immunologic: No A ll/Imm Complaints . D enies E czema. D enies S easonal allergies . D enies U [...] Medications: T aking Vitamin D3 50 MCG (2000 UT) Capsule 1 capsule Orally Once a [...] the patient * Allergies: S ulfa Drugs *mvynirx96/22/14: 01/27/2015- - Allergy, Carbamazepine: 01/27/2015- - Allergy. Objective: * Vitals: T emp:97.9F, HR:69/min, BP:124/82mm Hg, Wt:234lbs, BMI:30.87Index, Ht: 73 in, RR:16/min, Oxygen sat %:97%, Peak Flow: RA, Wt-k.14 kg. ple. * Examination: G eneral Examination: FUNCTIONAL STATUS [...] of Michael Logan MD on 10/29/2024 at 03:15 PM EDT Sign off status: Pending * Provider: Bette Logan M.D. Date: 1 07/17/2023 Generated for Erica boyle/Padmini/eTransmitting on: 0 10/29/2024 03:15 PM EDT History and Physical Notes * Examination Category Sub-Category Detail Notes Category Not es General Examination GENERAL APPEARANCE: in no ac crow distress, well developed, well nourished HEAD: normocephalic, [...]
--- OUTSIDE RECORDS SUMMARY | 2024-10-29 14:15 | XMS_ITS | Clinical Summary ---
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
--- OUTSIDE RECORDS SUMMARY | 2024-10-29 14:15 | XMS_ITS | Patient Health Record ---
Author Organization [facility] Address [address] [address] Care Team Providers Care Hobbing Press Operator Name Role Phone Sabas Logan Primary Care Provider Allergies Allergen (clinical drug ingredient) Drug/Non Drug Allergy documented on EMR Reaction Allergy Type Onset Date Status Sulfa Drugs *rumdtgl78/22/14 (uncoded) 01/27/2015- Allergy Active carbamazepine Carbamazepine 01/27/2015- [...] Problem Status W/U Status Risk Notes Problem Lipoma (59679168) Lipoma (D17.9) Active confirm ed Problem Irritable bowel syndrome (37926623) IBS (irritable bowel syndrome) (K58.9) Active confirmed Problem 55313545 Anxiety (F41.9) Active confirmed Problem Gastro-esophageal reflux disease without esophagitis (707069433) Gastro-esophageal reflux disease without esophagitis (K21.9) Active confirmed Problem Major depression, single episode (60240562) Major depressive disorder, single episode, unspecified (F32.9) Active confirmed Problem 219621418 Laceration of left foot, initial encounter (S91.312A) Active confirmed Problem 97176245596794431 Laceration of right middle finger without foreign body with damage to nail, initial encounter (S61.312A) Active confirmed Problem Kidney stone (31091925) Kidney stone on left side (N20.0) Active confirmed Problem 33903786 Testicular mass (N50.9) Active confirmed Problem 30966375 Allergic rhinitis, unspecified seasonality, unspecified trigger (J30.9) Active confirmed Problem 222915518 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) Active confirmed Problem Cellulitis (363144264) Cellulitis (L03.90) Active confirmed Problem Obesity (880988592) Obesity (E66.9) Active conf irmed Problem 540467172 Back pain (M54.9) Active confirmed Problem 61777797 Vitamin D deficiency (E55.9) Active confirmed Problem 17895672 Hyperglycemia (R73.9) Active confirmed Problem 90161906 Hyperlipidemia (E78.5) Active confirmed Problem Hypertension (59665207) Hypertension (I10) Active confirmed Problem 15831308 Major depressive disorder, recurrent, in remission, unspecified (F33.40) Active confirmed Vital Signs Heart Rate 76 /min 09/04/2024 Temperature 97.9 degrees Fahrenheit 09/04/2024 Respiratory Rate 16 /min 09/04/2024 Blood pressure diastolic 82 mm Hg 05/16/2024 ple Oximetry 96 % 09/04/2024 Height 73 in 09/04/2024 Blood pressure systolic 124 mm Hg 05/16/2024 ple Weight 237 lbs 09/04/2024 BMI 31.26 kg/m2 09/04/2024 Encounters Encounter Location Date Provider Diagnosis [place] [address] [address] 02/21/2024 Sabas Logan Hypertension I10 ; Hyperlipidemia E78.5 ; Vitamin D deficiency E55.9 ; Anxiety F41.9 ; Major depressive disorder, recurrent, in remission, unspecified F33.40 and Lipoma D17.9 [place] [address] [address] 05/16/2024 Asbas Logan Hypertension I10 ; Hyperlipidemia E78.5 ; Gastro-esophageal reflux disease without esophagitis K21.9 ; Vitamin D deficiency E55.9 and Anxiety F41.9 [place] [address] [address] 09/04/2024 Sabas Logan Hypertension I10 ; Hyperlipidemia E78.5 ; Gastro-esophageal reflux disease without esophagitis K21.9 ; Vitamin D deficiency E55.9 ; Hyperglycemia R73.9 ; IBS (irritable bowel syndrome) K58.9 ; Obesity E66.9 and Allergic rhinitis, unspecified seasonality, unspecified trigger J30.9 [facility] [address] [address] [facility]25/20[facility] [address] [address] 07/09/2024 [facility] [address] [address] 11/02/2023 [facility] [address] [address] 11/29/2023 [facility] [address] [address] 01/02/2024 [facility] [address] [address] 02/05/2024 [facility] [address] [address] 03/06/2024 [facility] [address] [address] 04/01/2024 [facility] [address] [address] 06/04/2024 [facility] [address] [address] 07/30/2024 [facility] [address] [address] 10/01/2024 Sabas Couchh Assessments Encounter Date Diagnosis (ICD Code) Assessment Notes Treatment Notes Treatment Clinical Notes Section Notes 02/21/2024 Hypertension (ICD-10 - I10) High Blood [...] in 3 months with lipid, CMP, CBC. 02/21/2024 Vitamin D deficiency (ICD-10 - E55.9) [...] - E55.9) 09/04/2024 Hyperglycemia (ICD-10 - R73.9) 05/16/2024 Vitamin D deficiency (ICD-10 - E55.9) 02/21/2024 Anxiety (ICD-10 - F41.9) hypertension: Stable. [...] in 3 months with lipid, CMP, CBC. 02/21/2024 Major depressive disorder, recurrent, in remission, [...] - K58.9) 09/04/2024 Obesity (ICD-10 - E66.9) 02/21/2024 Lipoma (ICD-10 - D17.9) hypertension: Stable. [...] Treatment Next Appt Details Provider Name:Sabas Reggie Washburni stacie, 12/11/2024 10:30:00 AM, [address] [facility] [facility] [address], [place], [address], Provider Name:Sabas Reggie quinones, 12/11/2024 11:00:00 AM, [address] [facility], [address], [place], [address], Insurance Providers Payer Name Payer Address Payer Phone Subscriber Number Group Number Insured Name Patient Relationship to Insured Coverage Start Date Coverage End Date [employer] LINK OPEN ACC [id number] [address] [place] [phone] [id number] JOCELYN RICHTER Self - patient is [...]
== END 2024-10-29 14:10 | disposition home or self-care (01) ==
PROVIDERS: PCP Internal Medicine; Visit Provider Urology
DX: N20.1 Calculus of ureter (principal)
CPT/HCPCS: 74018

== ENCOUNTER 2025-02-11 11:20 | Outpatient (CLI) | payer OTHER, SELFPAY ==
--- OUTSIDE RECORDS SUMMARY | 2024-08-26 06:00 | XMS_ITS ---
Author Organization [facility] Address [address] [facility] [address] [place] [address] Care Team Providers Care Wringer And Setter Name Role Phone Sabas Logan Primary Care Provider [phone] Encounters Encounter Location Date Provider Diagnosis [facility] [address] [facility] [address] [place] [address] 08/26/2024 Sabas Logan Plan Of Treatment Next Appt Details Provider Name:Sabas quinones, 04/02/2025 02:00:00 PM, [address] [facility], [place], [address], Progress Notes * JOCELYN RICHTER WDOB:1955 (69 yo M)Acc No.[id number]:08/26/2024 Progress Notes Patient: Jerald TREVINO JOCELYN Ashton Provider: Bette Logan M.D. :1955 A ge:68 Y S ex:Male Date:08/26/2024 Address:[address] [facility] Subjective: * Chief Complaints: * * Medical History: Objective: * Vitals: Assessment: Plan: * Treatment: * * Electronic signature of Michael Logan MD on 02/11/2025 at 02:25 PM EDT Sign off status: Pending * Provider: Bette Logan M.D. Date: 0 08/26/2024 Generated for Erica boyle/Padmini/Matilde on: 0 02/11/2025 02:25 PM EDT
--- OUTSIDE RECORDS SUMMARY | 2024-09-04 05:45 | XMS_ITS ---
Author Organization [facility] Address [address] [address] Care Team Providers Care Transformer Molder Name Role Phone Sabas Logan Primary Care Provider Allergies Allergen (clinical drug ingredient) Drug/Non Drug Allergy documented on EMR Reaction Allergy Type Onset Date Status Sulfa Drugs *kepydwb08/22/14 (uncoded) 01/27/2015- Allergy Active carbamazepine Carbamazepine 01/27/2015- Drug Allergy Active REASON FOR VISIT F/U on HTN Medications Medication SIG (Take, Route, Frequency, Duration) Notes Start Date End Date Status Amoxicillin 500 MG 1 capsule Orally TID ; Duration: 7 days 05/20/2020 Not-Taking Ceftin 250 MG 1 tablet Orally ever y 12 hrs; Duration: 7 days 05/10/2018 Not-Taking Cefuroxime Axetil 250 MG 1 tablet Orally every 12 hrs; Duration: 7 days 06/15/2018 Not-Taking Zovirax 5 % 1 application to affected area Externally Prn 04/06/2015 Not-Taking DesOwen 0.05% 1 application to affected area Externally PRN Not-Taking Losartan Potassium 50 MG TAKE 1 TABLET B Y MOUTH EVERY DAY; Duration: 90 days Active Advil 200 MG 1 tablet with food o r milk as needed Orally Three times a day Active Amitriptyline HCl 25 MG 1 tablet at bedt karrie Orally Once a day; Duration: 30 Not-Taking chlordiazePOXIDE-Amitriptyl ine 10-25 MG 1 tablet Orally Once a day; Duration: 30 days 07/30/2024 Active chlordiazePOXIDE HCl 10 MG 1 capsule Ora lly Once a day; Duration: 30 days 04/18/2019 Not-Taking Aleve 220MG 1 tablet as needed Orally Once a day Active Vitamin D3 50 MCG (1999 UT) 1 capsule Or ally Once a day Active Fluticasone Propionate 50 MCG/ACT 2 spray in each nostril Nasally Once a day; Duration: 30 days 01/05/2018 Active Problems Problem Type SNOMED Code ICD Code Onset Dates Problem Status W/U Status Risk Notes Problem Irritable bowel syndrome (52862336) IBS (irritable bowel syndrome) (K58.9) Active confirmed Vital Signs Temperature 97.9 degrees Fahrenheit 09/05/19 Heart Rate 76 /min 09/04/2024 Respiratory Rate 16 /min 09/04/2024 Height 73 in 09/04/2024 Weight 237 lbs 09/04/2024 BMI 31.26 kg/m2 09/04/2024 Oximetry 96 % 09/04/2024 Encounters Encounter Location Date Provider Diagnosis [address] [address] 09/04/2024 Sabas Logan Hypertension I10 ; Hyperlipidemia E78.5 ; Gastro-esophageal reflux disease without esophagitis K21.9 ; Vitamin D deficiency E55.9 ; Hyperglycemia R73.9 ; IBS (irritable bowel syndrome) K58.9 ; Obesity E66.9 and Allergic rhinitis, unspecified seasonality, unspecified trigger J30.9 Assessments Encounter Date Diagnosis (ICD Code) Assessment Notes Treatment Notes Treatment Clinical Notes Section Notes 09/04/2024 Hypertension (ICD-10 - I10) High Blood Pressure: Care Instructions material was printed 09/04/2024 Hyperlipidemia (ICD-10 - E78.5) 09/04/2024 Gastro-esophageal reflux disease without esophagitis (ICD-10 - K21.9) 09/04/2024 Vitamin D deficiency (ICD-10 - E55.9) 09/04/2024 Hyperglycemia (ICD-10 - R73.9) 09/04/2024 IBS (irritable bowel syndrome) (ICD-10 - K58.9) 09/04/2024 Obesity (ICD-10 - E66.9) 09/04/2024 Allergic rhinitis, unspecified seasonality, unspecified trigger (ICD-10 - J30.9) Plan Of Treatment Medication Medication Name Sig Start Date Stop Date Notes Fluticasone Propionate 50 MCG/ACT 2 spray in each nostril Nasally Once a day; Duration: 30 days 01/05/2018 Treatment Notes Assessment Notes Hypertension High Blood Pressure: Care Instructions material was printed Next Appt Details Provider Name:Sabas Paredes Shane quinones, 04/02/2025 02:00:00 PM, [address] [facility], [address], [place], [address], Progress Notes * JOCELYN RICHTER WDOB:1955 (69 yo M)Acc No.[id number]:09/04/2024 Progress Notes Patient: JOCELYN WAYNE W Provider: Bette Logan M.D. :1955 A ge:68 Y S ex:Male Date:09/04/2024 Address:[address] [place], [place] [id number] Subjective: * Chief Complaints: * 1 . F/U on HTN. * ROS: C onstitutional: No C onstit. Complaints . D enies A ppetites change . D enies E xcessive sweating . D enies F atigue . D enies F ever. D enies N ight sweats . D enies W eight gain. D enies W eight loss. E yes: No E ye complaints . D enies B lurred vision. D enies C orrective lenses. D enies D iplopia. D enies E ye irritation . D enies E ye pain . D enies S pots in vision . D enies V ision loss. ? E ars, nose, mouth, throat: No E NT complaints . D enies E ar pain . D enies H earing loss . D enies T innitus. D enies V ertigo. D enies F acial pain . D enies N arabella discharge. D enies N arabella obstruction . D enies N osebleeds. D enies P ostnasal drainage . D enies B leeding gums. D enies D ental pain . D enies M outh Lesions . D enies H oarseness. D enies S ore throat .? C ardiovascular: No C ardiovas. Complaints. D enies C hest pain .?Denies D ecr. exercise tolerance . D enies E xertional dyspnea . D enies O rthropnea. D enies P alpitations. D enies S yncope. D enies C laudication . Denies L eg ulcers . D enies P eripheral edema. R espiratory: No R espiratory Complaints . D enies C ough . D enies S putum production . D enies H emoptysis . D enies S hortness of Breath .?Denies P leuritic pain . D enies W heezing . D enies S noring . D enies A pneas. G astrointestinal: No G I Complaints . D enies A bdominal pain . D enies B loating . D enies F ood intolerance . D enies N ausea. D enies V omiting . D enies D ysphagia . D enies R eflux/heartburn . D enies C hange in bowel habits . D enies C onstipation . D enies D iarrhea . D enies B lack stools . D enies B loody stools. G enitourinary: No G U Complaints . D enies C hange in urinary stream . D enies D ysuria . D enies H ematuria . D enies I ncontinence . D enies N octuria . D enies U rinary frequency . D enies U rinary urgency . D enies D ysmenorrhea. D enies D yspareunia. D enies S exual dysfunction . D enies V aginal discharge . M usculoskeletal: Denies M usculo. Complaints . D enies B ack pain .?Denies J oint pain . D enies J oint swelling . D enies L imited range of motion . D enies M uscle aches. D enies M uscle weakness . D enies S tiffness . N eurologic: No N eurologic Complaints . D enies A bnormal gait . D enies F ocal weakness . D enies H eadache . D enies I ncoordination .?Denies M louise problems . D enies N umbness . D enies S eizures . D enies?Slurred Speech. P sychiatric: No P sychiatric Complaints . D enies A nxiety .?Denies D ecreased concentration . D enies I rritability . D enies P anic attacks . D enies S leep disturbance . D enies S adness/tearfulness. H ematologic/lymphatic: No H em/Lymph Complaints . D enies B ruising . D enies B leeding tendencies . D enies L ymphadenopathy . D enies R ecurrent infections . A llergic/immunologic: Denies E czema. A dmits S easonal allergies . D enies U rticaria . E ndocrine: No E ndocrine Complaints . D enies P olydipsia .?Denies P olyphagia . D enies P olyuria . * Medical History: A nxiety, Depression, GERD(Gastroesophageal reflux disease), Hyperlipidemia, Anxiety, dissociative and somatoform disorders. * Surgical History: K idney Stone ; , Rotator Cuff Surgery ; , colonoscopy 03/2017, Lithotripsy 04/2021, Lithotripsy 01/07/2022, kidney stone removal . * Hospitalization/Major Diagno stic Procedure: S ee Surgeries . * Family History: M igFamilyHx: Father-CHF. M other: diagnosed with Unspecified essential hypertension, Diabetes mellitus without mention of complication, type II or unspecified type, not stated as uncontrolled. 4 brother(s) , 5 sister(s) . 1 son(s) . . * Social History: M igSocialHx: M igSocialHx: Alcohol Use (ANS-No) ;Drug Use (ANS-No) ;Lives In (ANS-Home) ;Lives With (ANS-Spouse) ;Smoking status (ANS-Former smoker) ;. * Medications: T aking Vitamin D3 50 MCG (1999 UT) Capsule 1 capsule Orally Once a day , Taking Aleve 220MG Tablet 1 tablet as needed Orally Once a day , Taking Advil 200 MG Tablet 1 tablet with food or milk as needed Orally Three times a day , Taking Losartan Potassium 50 MG Tablet TAKE 1 TABLET BY MOUTH EVERY DAY , Taking chlordiazePOXIDE-Amitriptyline 10-25 MG Tablet 1 tablet Orally Once a day , Not-Taking/PRN Amitriptyline HCl 25 MG Tablet 1 tablet at bedtime Orally Once a day , Not-Taking/PRN chlordiazePOXIDE HCl 10 MG Capsule 1 capsule [...] the patient * Allergies: S ulfa Drugs *hwsulmg95/22/14: 01/27/2015- - Allergy, Carbamazepine: 01/27/2015- - Allergy. Objective: * Vitals: T emp:97.9F, HR:76/min, Wt:237lbs, BMI:31.26Index, Ht: 73 in, RR:16/min, Oxygen sat %:96%, Peak Flow: RA, Wt-k.5 kg. * Examination: G eneral Examination: FUNCTIONAL STATUS A mbulatory . COGNITIVE STATUS A lert and oriented. GENERAL APPEARANCE: i n no acute distress, well developed, well nourished. NUTRITIONAL STATUS N ormal . ASSISTED DEVICES N one. HEAD: n ormocephalic, atraumatic. EYES: p upils equal, reactive to light and accommodation.? EARS: n ormal. ORAL CAVITY: m ucosa moist. THROAT: c lear. NECK/THYROID: n marjorie supple, full range of motion, no cervical lymphadenopathy. SKIN: w arm and dry. HEART: r egular rate and rhythm, S1, S2 normal. LUNGS: c lear to auscultation bilaterally. ABDOMEN: n ormal, bowel sounds present, soft, nontender, nondistended. EXTREMITIES: n o clubbing, cyanosis, or edema. NEUROLOGIC: n onfocal, cranial nerves 2-12 grossly intact, motor strength normal upper and lower extremities, sensory exam intact. PSYCH: a lert, oriented x 3. Assessment: * Assessment: 1. H ypertension - I10 (Primary) 2 . H yperlipidemia - E78.5 ?3. G tye-esophageal reflux disease without esophagitis - K21.9 4 . V itamin D deficiency - E55.9 5 . H yperglycemia - R73.9 6 . I BS (irritable bowel syndrome) - K58.9 7 . O besity - E66.9 8 .?Allergic rhinitis, unspecified seasonality, unspecified trigger - J30.9 Plan: * Treatment: 2. A llergic rhinitis, unspecified seasonality, unspecified trigger Refill Fluticasone Propionate Suspension, 50 MCG/ACT, 2 spray in each nostril, Nasally, Once a day, 30 days, 1, Refills 1. * Preventive Medicine: Your Preventative Wellness Plan: I nfluenza Vaccine I nfluenza vaccine should be given once every flu season. STATUS: U p to date, D ate of last flu vaccine: 0 02/21/2024 High Dose Flu Vaccine. * * Electronic signature of Michael Logan MD on 02/11/2025 at 02:25 PM EDT Sign off status: Pending * Provider: Bette Logan M.D. Date: 0 09/04/2024 Generated for Erica boyle/Padmini/Madisonitting on: 0 02/11/2025 02:25 PM EDT History and Physical Notes * Examination Category Sub-Category Detail Notes Category Not es General Examination GENERAL APPEARANCE: in no ac [place] distress, well developed, well nourished HEAD: normocephalic, atrau matic EYES: pupils equal, reacti ve to light and accommodation EARS: normal THROAT: clear NECK/THYROID: neck supple, full ra nge of motion, no cervical lymphadenopathy HEART: regular rate and rhy thm, S1, S2 normal LUNGS: clear to auscultatio n bilaterally ABDOMEN: normal, bowel sounds present, soft, nontender, nondistended NEUROLOGIC: nonfocal, cranial ne rves 2-12 grossly intact, motor strength normal upper and lower extremities, sensory exam intact SKIN: warm and dry EXTREMITIES: no clubbing, cyanosi s, or edema PSYCH: alert, oriented x 3 ORAL CAVITY: mucosa moist FUNCTIONAL STATUS Ambulatory COGNITIVE STATUS Alert and oriented NUTRITIONAL STATUS Normal ASSISTED DEVICES None
--- OUTSIDE RECORDS SUMMARY | 2024-12-11 05:30 | XMS_ITS ---
Author Organization [facility] Address [address] [facility] [address] [place] [address] Care Team Providers Care Pianos And Organs Salesperson Name Role Phone Sabas Logan Primary Care Provider Encounters Encounter Location Date Provider Diagnosis [facility] [address] [facility] [address] [place] [address] 12/11/2024 Sabas Logan Plan Of Treatment Next Appt Details Provider Name:Sabas quinones, 04/02/2025 02:00:00 PM, [address] [facility], [address], [place], [address], Progress Notes * JOCELYN RICHTER WDOB:1955 (69 yo M)Acc No.[id number]:12/11/2024 Progress Notes Patient: Jerald TREVINO JOCELYN Ashton Provider: Bette Logan M.D. :1955 A ge:69 Y S ex:Male Date:12/11/2024 Address:[address] [facility] Subjective: * Chief Complaints: * * Medical History: Objective: * Vitals: Assessment: Plan: * Treatment: * * Electronic signature of Michael Logan MD on 02/11/2025 at 02:25 PM EDT Sign off status: Pending * Provider: Bette Logan M.D. Date: 0 12/11/2024 Generated for Erica boyle/Padmini/Matilde on: 0 02/11/2025 02:25 PM EDT
--- OUTSIDE RECORDS SUMMARY | 2024-12-11 06:00 | XMS_ITS ---
Author Organization [facility] Address [address] [facility] [address] [place] [address] Care Team Providers Care City Dispatch Supervisor Name Role Phone Sabas Logan Primary Care Provider Encounters Encounter Location Date Provider Diagnosis [facility] [address] [facility] [address] [place] [address] 12/11/2024 Sabas Logan Plan Of Treatment Next Appt Details Provider Name:Sabas quinones, 04/02/2025 02:00:00 PM, [address] [facility], [address], [place], [address], Progress Notes * JOCELYN RICHTER WDOB:1955 (69 yo M)Acc No.[id number]:12/11/2024 Progress Notes Patient: Jerald TREVINO JOCELYN Ashton Provider: Bette Logan M.D. :1955 A ge:69 Y S ex:Male Date:12/11/2024 Address:[address] [facility] Subjective: * Chief Complaints: * * Medical History: Objective: * Vitals: Assessment: Plan: * Treatment: * * Electronic signature of Michael Logan MD on 02/11/2025 at 02:26 PM EDT Sign off status: Pending * Provider: Bette Logan M.D. Date: 0 12/11/2024 Generated for Erica boyle/Padmini/Matilde on: 0 02/11/2025 02:26 PM EDT
--- OUTSIDE RECORDS SUMMARY | 2024-12-23 08:45 | XMS_ITS ---
Author Organization [facility] Address [address] [address] Care Team Providers Care Purchasing Department Clerk Name Role Phone Sabas Logan Primary Care Provider [phone] Allergies Allergen (clinical drug ingredient) Drug/Non Drug Allergy documented on EMR Reaction Allergy Type Onset Date Status Sulfa Drugs *ppohgqa21/22/14 (uncoded) 01/27/2015- Allergy Active carbamazepine Carbamazepine 01/27/2015- [...] 12 hrs; Duration: 7 days 06/15/2018 Not-Taking DesOwen 0.05% 1 application to affected area Externally PRN Not-Taking Zovirax 5 % 1 application to affected area Externally Prn 04/06/2015 Not-Taking Amitriptyline HCl 25 MG 1 tablet at bedt karrie Orally Once a day; Duration: 30 Not-Taking chlordiazePOXIDE-Amitriptyl ine 10-25 MG 1 tablet Orally Once a day; Duration: 30 days 12/02/2024 Active chlordiazePOXIDE HCl 10 MG 1 capsule Ora lly Once a day; Duration: 30 days 04/18/2019 Not-Taking Fluticasone Propionate 50 MCG/ACT 2 spray in each nostril Nasally Once a day; Duration: 30 days 01/05/2018 Active Losartan Potassium 50 MG TAKE 1 TABLET B Y MOUTH EVERY DAY; Duration: 90 days Active Aleve 220MG 1 tablet as needed Orally Once a day Active Vitamin D3 50 MCG (1999) 1 capsule Or ally Once a day Active Advil 200 MG 1 tablet with food o r milk as needed Orally Three times a day Active Social History Tobacco Use: Social History Observation [...] other tobacco user? No Vital Signs Temperature 98 degrees Fahrenheit 12/23/2024 Blood pressure systolic 136 mm Hg 12/24/19 25 Blood pressure diastolic 84 mm Hg 025 Heart Rate 66 /min 12/23/2024 Respiratory Rate 16 /min 12/23/2024 Height 73 in 12/23/2024 Weight 231 lbs 12/23/2024 BMI 30.47 kg/m2 12/23/2024 Oximetry 98 % 12/23/2024 TM/PLE Encounters Encounter Location Date Provider Diagnosis [facility] [address] [address] 12/23/2024 Sabas Logan Hypertension I10 ; Hyperlipidemia E78.5 ; Gastro-esophageal reflux disease without esophagitis K21.9 ; Vitamin D deficiency E55.9 ; Hyperglycemia R73.9 and Back pain M54.9 Assessments Encounter Date Diagnosis (ICD Code) Assessment Notes Treatment Notes Treatment Clinical Notes Section Notes 12/23/2024 Hypertension (ICD-10 - I10) High Blood Pressure: Care Instructions material was printed 12/23/2024 Hyperlipidemia (ICD-10 - E78.5) 12/23/2024 Gastro-esophageal reflux disease without esophagitis (ICD-10 - K21.9) 12/23/2024 Vitamin D deficiency (ICD-10 - E55.9) 12/23/2024 Hyperglycemia (ICD-10 - R73.9) 12/23/2024 Back pain (ICD-10 - M54.9) Plan Of Treatment Treatment Notes Assessment Notes Hypertension High Blood Pressure: Care Instructions material was printed Next Appt Details Provider Name:Sabas Lynn stacie, 04/02/2025 02:00:00 PM, [address] [facility], [address], [place], [address], Progress Notes * JOCELYN RICHTER WDOB:1955 (69 yo M)Acc No.[id number]:12/23/2024 Progress Notes Patient: JOCELYN WAYNE Provider: Bette Logan M.D. :1955 A ge:69 Y S ex:Male Date:12/23/2024 Address:[address] [place], [place] [id number] Subjective: * Chief Complaints: * 1 . [...] Orally Three times a day , Taking Fluticasone Propionate 50 MCG/ACT Suspension 2 spray in each nostril Nasally Once a day , Taking Losartan Potassium [...] tablet Orally every 12 hrs , Not-Taking/PRN Zovirax 5 % Cream 1 application to affected area Externally Prn , Not-Taking/PRN DesOwen 0.05% Cream 1 application to affected area Externally PRN , Medication List reviewed and reconciled with the patient * Allergies: S ulfa Drugs *qtxkujz27/22/14: 01/27/2015- - Allergy, Carbamazepine: 01/27/2015- - Allergy. Objective: * Vitals: T emp:98F, HR:66/min, BP:136/84mm Hg, Wt:231lbs, BMI:30.47Index, Ht: 73 in, RR:16/min, Oxygen sat %:98%, Peak Flow:RA, Wt-k.78 kg. TM/PLE. Assessment: * Assessment: 1. H ypertension - I10 (Primary) 2 . H yperlipidemia - E78.5 ?3. G tye-esophageal reflux disease without esophagitis - K21.9 4 . V itamin D deficiency - E55.9 5 . H yperglycemia - R73.9 6 . B ack pain - M54.9 Plan: * Treatment: * Preventive Medicine: Your [...] Pending * Provider: Bette Logan M.D. Date: 12/23/2024 Generated for Erica boyle/Padmini/Matilde on: 02/11/2025 02:25 PM EDT
--- NOTE | ~2025-02-11 | XR_ITS ---
EXAM/PROCEDURE: XR abdomen/kub 1V - 02/11/2025 11:27 CDT HISTORY: 69 years old Male with THROBBING LOWER ABD PAIN/HX OF STONES COMPARISON: None available. TECHNIQUE: AP view(s) of the abdomen. FINDINGS: The bowel gas pattern is normal. There is no evidence for obstruction. No free intraperitoneal air is identified on this supine radiograph. The visualized soft tissue shadows are unremarkable. No gross bony abnormalities are seen. Visualized portions of lung bases are clear. IMPRESSION: No acute process. Reviewed, dictated and finalized at location N. IMPRESSION: No acute process.
--- OUTSIDE RECORDS SUMMARY | 2025-02-11 13:25 | XMS_ITS | Clinical Summary ---
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
--- OUTSIDE RECORDS SUMMARY | 2025-02-11 13:26 | XMS_ITS | Patient Health Record ---
Author Organization [facility] [place] [facility] Address [address] [address] Care Team Providers Care Genetic Coordinator Name Role Phone Sabas Logan Primary Care Provider Allergies Allergen (clinical drug ingredient) Drug/Non Drug Allergy documented on EMR Reaction Allergy Type Onset Date Status Sulfa Drugs *tbfonza99/22/14 (uncoded) 01/27/2015- Allergy Active carbamazepine Carbamazepine 01/27/2015- Drug Allergy Active Reason For Referral No Information Medications Medication SIG (Take, Route, Frequency, Duration) Notes Start Date End Date Status Amitriptyline HCl 25 MG 1 tablet at bedt karrie Orally Once a day; Duration: 30 Not-Taking Amoxicillin 500 MG 1 capsule Orally TID ; Duration: 7 days 05/20/2020 Not-Taking chlordiazePOXIDE HCl 10 MG 1 capsule Ora lly Once a day; Duration: 30 days 04/18/2019 Not-Taking chlordiazePOXIDE-Amitriptyl ine 10-25 MG 1 tablet Orally Once a day; Duration: 30 days 01/01/2025 Active Ceftin 250 MG 1 tablet Orally ever y 12 hrs; Duration: 7 days 05/10/2018 Not-Taking Cefuroxime Axetil 250 MG 1 tablet Orally every 12 hrs; Duration: 7 days 06/15/2018 Not-Taking Aleve 220MG 1 tablet as needed Orally Once a day Active DesOwen 0.05% 1 application to affected area Externally PRN Not-Taking Vitamin D3 50 MCG (1999 UT) 1 capsule Or ally Once a day Active Zovirax 5 % 1 application to affected area Externally Prn 04/06/2015 Not-Taking Fluticasone Propionate 50 MCG/ACT 2 spray in each nostril Nasally Once a day; Duration: 30 days 01/05/2018 Active Advil 200 MG 1 tablet with food o r milk as needed Orally Three times a day Active Losartan Potassium 50 MG TAKE 1 TABLET B Y MOUTH EVERY DAY; Duration: 90 days Active Immunizations Vaccine Route Administration Date Status Comme [...] Risk Notes Problem Major depression, single episode (13014370) Major depressive disorder, single episode, unspecified (F32.9) Active confirmed Problem Recurrent major depression (60594940) Major depressive disorder, recurrent, in remission, unspecified (F33.40) Active confirmed Problem Gastro-esophageal reflux disease without esophagitis (209485041) Gastro-esophageal reflux disease without esophagitis (K21.9) Active confirmed Problem Hypertension (43121724) Hypertension (I10) Active confirmed Problem Hyperlipidemia (33435994) Hyperlipidemia (E78.5) Active confirmed Problem Hyperglycemia (94333303) Hyperglycemia (R73.9) Active confirmed Problem Anxiety (43739870) Anxiety (F41.9) Active confirmed Problem Vitamin D deficiency (72726070) Vitamin D deficiency (E55.9) Active confirmed Problem Back pain (108033145) Back pain (M54.9) Active confirmed Problem Lipoma (49299662) Lipoma (D17.9) Active confirm ed Problem Obesity (423487872) Obesity (E66.9) Active confirmed Problem Irritable bowel syndrome (63304096) IBS (irritable bowel syndrome) (K58.9) Active confirmed Problem Allergic rhinitis (59252940) Allergic rhinitis, unspecified seasonality, unspecified trigger (J30.9) Active confirmed Problem Testicular mass (15549705) Testicular mass (N50.9) Active confirmed Problem Kidney stone (82247794) Kidney stone on left side (N20.0) Active confirmed Problem Laceration of right middle finger without foreign body with damage to nail, initial encounter (S61.312A) Active confirmed Problem Laceration of left foot (9623225857221278 6) Laceration of left foot, initial encounter (S91.312A) Active confirmed Vital Signs Heart Rate 66 /min 12/23/2024 TM/PLE Temperature 98 degrees Fahrenheit 12/23/2024 TM/PLE Respiratory Rate 16 /min 12/23/2024 TM/PLE Oximetry 98 % 12/23/2024 TM/PLE Blood pressure diastolic 84 mm Hg 12/23/2024 TM/ PLE Height 73 in 12/23/2024 TM/PLE Blood pressure systolic 136 mm Hg 12/23/2024 TM/P LE Weight 231 lbs 12/23/2024 TM/PLE BMI 30.47 kg/m2 12/23/2024 TM/PLE Encounters Encounter Location Date Provider Diagnosis [place] [address] [address] 02/21/2024 Sabas Logan Hypertension I10 ; Hyperlipidemia E78.5 ; Vitamin D deficiency E55.9 ; Anxiety F41.9 ; Major depressive disorder, recurrent, in remission, unspecified F33.40 and Lipoma D17.9 [facility] [address] [address] 05/16/2024 Sabas Logan Hypertension I10 ; Hyperlipidemia E78.5 ; Gastro-esophageal reflux disease without esophagitis K21.9 ; Vitamin D deficiency E55.9 and Anxiety F41.9 [facility] [address] [address] 09/04/2024 Sabas Logan Hypertension I10 ; Hyperlipidemia E78.5 ; Gastro-esophageal reflux disease without esophagitis K21.9 ; Vitamin D deficiency E55.9 ; Hyperglycemia R73.9 ; IBS (irritable bowel syndrome) K58.9 ; Obesity E66.9 and Allergic rhinitis, unspecified seasonality, unspecified trigger J30.9 [facility] [address] [address] 12/23/2024 Sabas Logan Hypertension I10 ; Hyperlipidemia E78.5 ; Gastro-esophageal reflux disease without esophagitis K21.9 ; Vitamin D deficiency E55.9 ; Hyperglycemia R73.9 and Back pain M54.9 [facility] [address] [address] 07/09/[facility] [address] [address] [facility]/06[facility] [address] [address] 04/01/20[facility] [address] [address] 06/04/2024 [facility] [address] [address] 07/30/2024 [facility] [address] [address] 10/01/2024 [facility] [address] [address] 12/02/20[facility] [address] [address] 01/01/2025 Sabas Logan Assessments Encounter Date Diagnosis (ICD [...] was printed 09/04/2024 Hyperlipidemia (ICD-10 - E78.5) 12/23/2024 Hypertension (ICD-10 - I10) High Blood Pressure: Care Instructions material was printed 12/23/2024 Hyperlipidemia (ICD-10 - E78.5) 09/04/2024 Gastro-esophageal reflux [...] 09/04/2024 Vitamin D deficiency (ICD-10 - E55.9) 12/23/2024 Gastro-esophageal reflux disease without esophagitis (ICD-10 - K21.9) 12/23/2024 Vitamin D deficiency (ICD-10 - E55.9) 05/16/2024 [...] CMP, CBC. 05/16/2024 Anxiety (ICD-10 - F41.9) 12/23/2024 Hyperglycemia (ICD-10 - R73.9) 09/04/2024 IBS (irritable bowel syndrome) (ICD-10 - K58.9) 09/04/2024 Obesity (ICD-10 - E66.9) 12/23/2024 Back pain (ICD-10 - M54.9) 02/21/2024 Lipoma (ICD-10 - D17.9) hypertension: Stable. [...] Provider Name:Sabas quinones, 04/02/2025 02:00:00 PM, [address] [facility] [address], [place], [address], Insurance Providers Payer Name Payer Address Payer Phone Subscriber Number Group Number Insured Name Patient Relationship to Insured Coverage Start Date Coverage End Date [employer] [id number] [address] [place] [phone] [id number] JOCELYN RICHTER Self - patient is [...]
== END 2025-02-11 11:21 | disposition home or self-care (01) ==
PROVIDERS: PCP Internal Medicine; Visit Provider Urology
DX: N20.0 Calculus of kidney (principal)
CPT/HCPCS: 74018